=== PATIENT | female | born 1950 | race Caucasian/White ===

== ENCOUNTER 2018-11-13 18:02 | Inpatient (IN) | payer MEDICARE, SELFPAY ==
[~2018-11-13 18:02] MED LIST: Dexamethasone 20 MG/5 ML VIAL ONE; ISOVUE-370 76%-LOCM 1 ML ONE; PHENYLEPHRINE-NS 100 MCG/ML 10 ML SYRINGE ONE; PROPOFOL 200 MG/20 ML VIAL ONE; Rocuronium Bromide 10 MG/ML (10ML VIAL) ONE; ePHEDrine/0.9% NaCl/PF SYRINGE 50 mg/10 ml ONE
[2018-11-13] MEDS ORDERED: niCARdipine 20MG In NaCl 20 MG/200 ML BAG ONE (18:24)
[2018-11-13 18:38] LABS: #Basophils 0.1 thou/uL (0.0-0.2); #Eosinphils 0.1 thou/uL (0.0-0.7); #Lymphocytes 1.2 thou/uL (1.20-3.40); #Monocytes 0.6 thou/uL (0.11-0.59); #Neutrophils 12.5 thou/uL (1.40-6.50); %Basophils 0.4 % (0.0-1.0); %Eosinophils 0.8 % (0.0-10.0); %Lymphocytes 8.1 % (21.0-51.0); %Monocytes 3.8 % (0.0-10.0); %Neutrophils 86.9 % (42.0-75.0); Mean Corpuscular HGB CONC 32.6 g/dL (32.0-36.0); Mean Corpuscular Hemoglobin 29.8 pg (27.0-31.0); Mean Corpuscular Volume 91.6 fL (78.0-98.0); Platelet Count 250 thou/uL (130-400); RBC Distribution Width 11.9 % (11.5-14.5); Red Blood Cell (RBC) Count 5.03 mill/uL (4.20-5.40); White Blood Cell (WBC) Count 14.4 thou/uL (4.8-10.8)
[2018-11-13 18:46] LABS: PTT 28.1 SEC (22.9-36.1)
[2018-11-13] MEDS ORDERED: fentaNYL Citrate/PF 2,000 MCG in Sodium Chloride 0.9% 60 ML IV SCH (18:55)
[2018-11-13] MEDS ORDERED: Fentanyl 100 MCG/2 ML VIAL ONE ×2 (18:55→23:07)
[2018-11-13 18:58] LABS: ALT (SGPT) 14 U/L (8-55); AST (SGOT) 22 U/L (5-34); Albumin 4.2 g/dL (3.4-4.8); Alkaline Phosphatase 112 U/L (40-150); Anion Gap 18 mmol/L (10-20); BUN (Urea Nitrogen) 16 mg/dL (9.8-20.1); Bilirubin, Total 0.4 mg/dL (0.2-1.2); Calc. Creatinine Clearance 0 mL/min (70-130); Calcium 8.8 mg/dL (7.8-10.44); Carbon Dioxide 18 mmol/L (23-31); Chloride 104 mmol/L (98-107); Estimated GFR-MDRD 68; Globulin 2.8 g/dL (2.4-3.5); Glucose 167 mg/dL (80-115); Potassium 3.4 mmol/L (3.5-5.1); Sodium 137 mmol/L (136-145)
[2018-11-13 19:04] LABS: Actual Bicarbonate (HCO3a) 21.1 mEq/L (22-28); Analyzer IN Cardio ER; Base Excess (BEa) -2.8 mEq/L (-2.0 to +3.0); CO2 Tension 34.3 mmHg (35.0-45.0); Calcium, Ionized 1.13 mmol/L (1.12-1.30); Carboxyhemoglobin (COHb) 3.3 gm% (0.0-3.0); Hemoglobin (Hb) 14.7 g/dL (12.0-16.0); Potassium - ABG Lab 3.32 mmol/L (3.70-5.30); pH, Arterial 7.41 (7.35-7.45)
[2018-11-13 19:05] LABS: ALV-art Gradient 344.125 (0-20); Puncture Site RBRACH
[2018-11-13] MEDS ORDERED: Propofol 1,000 MG/100 ML VIAL IV ONE (19:07)
[2018-11-13] MEDS ORDERED: Morphine 4 MG/ML VIAL SLOW IVP PRN ×2 (19:35)
[2018-11-13] MEDS ORDERED: diphenhydrAMINE 50 MG CAP PO PRN (19:35)
[2018-11-13] MEDS ORDERED: Docusate 100 MG CAP PO PRN (19:35)
[2018-11-13] MEDS ORDERED: Ondansetron PF 4 MG/2 ML Vial IVP PRN (19:35)
[2018-11-13] MEDS ORDERED: Promethazine 25 MG TAB PO PRN (19:35)
[2018-11-13] MEDS ORDERED: Promethazine HCl 25 MG/ML VIAL IM PRN (19:35)
[2018-11-13] MEDS ORDERED: HYDROcodone/Acetaminophen 7.5/325 mg Tablet PO PRN (19:35)
[2018-11-13] MEDS ORDERED: diphenhydrAMINE 50 MG/ML VIAL IVP PRN (19:35)
[2018-11-13] MEDS ORDERED: Milk Of Magnesia 30 ML UDCUP PO PRN (19:35)
[2018-11-13] MEDS ORDERED: Mag-Al 1200 mg/1200 mg/30 ML UDCUP PO PRN (19:35)
--- NOTE | 2018-11-13 19:59 | RAD ---
PORTABLE CHEST 11/13/18 PROVIDED CLINICAL HISTORY: Intubation. FINDINGS: No comparisons. The cardiac and mediastinal silhouette is within normal limits. Lungs appear clear. No pleural fluid or pneumothorax apparent. Endotracheal tube is noted, tip of which terminates just at the level of th e thoracic inlet. IMPRESSION: No evidence for an acute cardiopulmonary process. POS: [facility]
[2018-11-13] MEDS ORDERED: Labetalol HCl 100 MG/20 ML VIAL SLOW IVP SCH (20:00)
--- NOTE | 2018-11-13 20:10 | CT ---
CT BRAIN 11/13/18 PROVIDED CLINICAL HISTORY: History of aneurysm, left sided flaccidity. FINDINGS: No comparisons. There is a 6.6 cm parenchymal hematoma involving the right basal ganglia region. There is extensive s ubarachnoid hemorrhage. There is likely a small amount of right subdural hemorrhage as well. There is evidence for aneurysm clip in the expected location of the left MCA. There is encephalomalacia invol ving much of the left temporal and parietal regions. There is about 1.5 cm of right to left midline s hift. The ventricular system is nondilated. Craniotomy changes are seen on the left. The extracranial soft tissues and osseous structures appear otherwise unremarkable. IMPRESSION: Findings compatible with ruptured right MCA aneurysm with associated parenchymal hematoma and extensi ve subarachnoid hemorrhage. Findings communicated to Dr. August at 6:15 p.m., 11/13/18. Code CR POS: [facility]
[2018-11-13] MEDS ORDERED: manNITOL 20% 500 ML ONE (20:41)
[2018-11-13] MEDS ORDERED: Phenylephrine HCL 10 MG/ML VIAL ONE (20:50)
[2018-11-13] MEDS ORDERED: levETIRAcetam 500 MG/100 ML PREMIX BAG ONE (20:51)
[2018-11-13] MEDS ORDERED: levETIRAcetam 1000 MG/100 ML PREMIX BAG ONE (20:51)
[2018-11-13] MEDS ORDERED: Lidocaine 0.5%/Epinephrine 1:200,000 50 ml Vial ONE (20:52)
[2018-11-13] MEDS ORDERED: Papaverine 60 MG/2 ML VIAL ONE (20:52)
[2018-11-13] MEDS ORDERED: Sodium Chloride 0.9% 10 ML ONE ×2 (20:52→20:55)
[2018-11-13] MEDS ORDERED: Bacitracin Zinc Ointment 30 gm TUBE ONE (20:57)
[2018-11-13] MEDS ORDERED: Albumin 5% 0 ML ONE (21:11)
[2018-11-13] MEDS ORDERED: Indocyanine Green 25 MG/10 ML VIAL ONE ×2 (21:31→22:57)
--- NOTE | 2018-11-13 22:03 | CT ---
CT ANGIOGRAM GREAT VESSELS NECK WITH IV CONTRAST AND 3D MIP RECONSTRUCTIONS CT ANGIOGRAM BRAIN WITH IV CONTRAST AND 3D MIP RECONSTRUCTIONS 11/13/18 PROVIDED CLINICAL HISTORY: Aneurysm. FINDINGS: There is a normal three vessel configuration of the great vessels at the arch. There is no evidence f or a significant stenosis involving the subclavian carotid, innominate or vertebral arteries. The left vertebral artery is dominant. There is a saccular right MCA trifurcation aneurysm measuring approximately 6.6 mm in greatest transv erse dimension. This demonstrates a neck measuring approximately 3 mm. Postoperative changes of prior left MCA aneurysm clipping are noted. Intracranial hemorrhage and encephalomalacia involving the lef t cerebral hemisphere as described on prior noncontrast CT examination redemonstrated. IMPRESSION: 1. Normal CT angiogram of the great vessels of the neck. 2. 6 mm saccular right MCA trifurcation aneurysm with relatively broad neck. 3. Redemonstration of intracranial hemorrhage. The degree of midline shift appears to have incre ased with respect to the early noncontrast CT examination, now measuring about 2 cm. POS: [facility]
[2018-11-13] MEDS ORDERED: Sodium Chloride 0.9% 30 ML ONE (22:19)
--- NOTE | 2018-11-13 22:38 | PRG ---
DATE OF SERVICE: 11/13/2018 SUBJECTIVE: I personally examined Ms. Camargo, spoke with her , reviewed imaging records and agreed with documentation of Diana Shea PA-C, dated 11/13/2018. Briefly, Colleen Camargo is a 68-year-old woman with a remote history (20 years ago) of left MCA aneurysm rupture, treated by craniotomy and clipping as evidenced on her CT scan. More recently, she has stopped taking her medications including blood pressure medicine about 6 months ago. She had abrupt onset loss of consciousness and was brought to our emergency department today, where CT imaging of the brain revealed a right-sided parenchymal hemorrhage in the inferior frontal lobe near the sylvian fissure as well as subarachnoid blood in the basal cisterns. CT angiography showed a MCA aneurysm. On the 1st evaluation, Ms. Camargo was drowsy, but arousable. Her eyes open to voice. She was localizing. She does not pay as much tension in the left side as the right, but all extremities were moving and all her cranial nerves were intact. The CT angiogram was ordered at that time. Because of emergency department concern about airway protection, she was intubated before that. At around 16:40 in the afternoon/evening, she was given etomidate and rocuronium according to the ER nurse. This was for intubation and endotracheal tube was placed. A CT angiogram was performed and images of that angiogram were finally available of AP. I met the patient in the emergency department after intubation and stopped her propofol drip. We waited 15 minutes. We ensured both the rocuronium and the etomidate in the past and we re-examined her. At this time, her examination was much poor including large nonreactive pupil on the right than the 4-mm nonreactive pupil on the left with a corneal that was intact. There was a gag that was intact. Doll's eyes were missing. To deep central pain, there was extension in the right upper extremity. No motion on the left. The parenchymal hemorrhage is causing more shift and a CT angiogram done on the previous CT scan, basal cisterns were still filled with subarachnoid hemorrhage. I had originally spoken to the after the CT examination about an attempt at coiling and then a craniotomy for evacuation of the clot and decompression. Due to deterioration, we elected to take her to the operating room. Informed Consent: I discussed indications, risks, benefits, and alternatives to craniectomy, clot evacuation, and aneurysm clipping. Risks discussed included, but were not limited to bleeding, infection, stroke, brain damage, seizures, epilepsy, permanent neurological deficit, dependence for care, and cardiopulmonary complications of anesthesia including . Due to the deterioration in neurological function on the nonfunctional pupils, the history of previous aneurysm, and a midline shift, I think return to independent living is less on left likely. understood this, but still assistive, proceeded with emergent care. We will take her to the operating room. Job ID: [id number]
[2018-11-13] MEDS ORDERED: Thrombin 5000 UNITS/5 ML VIAL ONE (22:51)
[2018-11-13] MEDS ORDERED: PHENYLEPHRINE-NS 100 MCG/ML 10 ML SYRINGE ONE ×2 (23:15→23:16)
[2018-11-14] MEDS ORDERED: Adenosine 6 MG/2 ML VIAL ONE (00:05)
[2018-11-14] MEDS ORDERED: Rocuronium Bromide 50 MG/5 ML VIAL ONE (00:12)
[2018-11-14 02:54] LABS: Actual Bicarbonate (HCO3a) 20.7 mEq/L (22-28); CO2 Tension 29.6 mmHg (35.0-45.0); Calcium, Ionized 1.04 mmol/L (1.12-1.30); Carboxyhemoglobin (COHb) 0.8 gm% (0.0-3.0); Hemoglobin (Hb) 13.7 g/dL (12.0-16.0); O2 Tension (PaO2) 62.1 mmHg (> 80.0); Potassium - ABG Lab 3.81 mmol/L (3.70-5.30); pH, Arterial 7.46 (7.35-7.45)
[2018-11-14 02:56] LABS: Puncture Site LINE
[2018-11-14] MEDS: Famotidine/PF 20 mg/2ml Vial SLOW IVP SCH ×3 (03:07→20:02)
[2018-11-14] MEDS: Sodium Chloride 0.9% 1,000 ML IV SCH ×2 (03:17→17:18)
[2018-11-14] MEDS: Labetalol HCl 100 MG/20 ML VIAL SLOW IVP PRN ×3 (03:18→06:04)
[2018-11-14] MEDS: niMODipine 30 MG CAP PO SCH ×2 (03:37→06:08)
[2018-11-14 07:11] LABS: Actual Bicarbonate (HCO3a) 18.8 mEq/L (22-28); Base Excess (BEa) -4.1 mEq/L (-2.0 to +3.0); CO2 Tension 28.6 mmHg (35.0-45.0); Calcium, Ionized 1.09 mmol/L (1.12-1.30); Carboxyhemoglobin (COHb) 1.3 gm% (0.0-3.0); O2 Tension (PaO2) 110.9 mmHg (> 80.0); Potassium - ABG Lab 3.66 mmol/L (3.70-5.30); pH, Arterial 7.44 (7.35-7.45)
[2018-11-14 07:14] LABS: Puncture Site ALINE
--- NOTE | 2018-11-14 07:16 | HP ---
HISTORY OF PRESENT ILLNESS: Ms. Camargo is a 68-year-old female who was life flighted to the emergency department due to altered mental status. There is little information on her per EMS and family has not arrived. She comes from the [facility]. Neurosurgery was consulted due to a large right intraparenchymal hemorrhage with approximately 15 mm of midline shift right to left, which has a possible aneurysmal component to it per the radiologist. The patient is in the emergency department, when I entered the room, she is arousable by voice. She will turn and open her eyes and look to the right. She is making noises, but no recognizable words. She is moving both lower extremities and the right upper extremity. She has a GCS of 10 . Upon arrival, she was hypertensive at 158/111. We do not know her medications at this time. REVIEW OF SYSTEMS: Unable to obtain review of systems. PAST MEDICAL HISTORY: No known past medical history. Per the CT of the head, she has had a previous craniotomy with what appears to be a clip. CURRENT MEDICATIONS: Unknown current medications. ALLERGIES: UNKNOWN ALLERGIES. PAST SURGICAL HISTORY: Left-sided craniotomy with clip. PHYSICAL EXAMINATION: VITAL SIGNS: Heart rate 157/98, respirations 16, pulse 66, temperature 95.9, O2 saturation 94% on room air. CONSTITUTIONAL: The patient is hypertensive, afebrile. Appears to be mildly distressed and is arousable. HEENT: Head is normocephalic, atraumatic. Pupils are equal, round, reactive to light. Extraocular movements are intact. Appears to be left-sided neglect. Hearing is intact. Moist mucous membranes. RESPIRATION: Normal work of breathing on room air. CARDIO: Regular rate and rhythm. NEUROLOGIC: The patient has a GCS of 10. She opens her eyes to speech. She is obeying motor commands with her right upper extremity and both lower extremities and she is making incomprehensible sounds. Pupils are equal, round, reactive to light. There is no Babinski. 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 She is moving both lower extremities. When spoken to, she will open her eyes, but look to the right. She neglects on the left side. IMAGING STUDIES: CT of the head shows a large intraparenchymal hemorrhage on the right that is approximately 15 mm right to left midline shift. There is noted craniotomy with clip on the left temporal area. ASSESSMENT AND PLAN: Ms. Camargo has sustained a large arachnoid hemorrhage with possible aneurysmal component. We will need to obtain a CK and need to admit maintaining her blood pressure , keeping her comfortable. Re-evaluate swallowing and imaging. Repeat CT in the morning. Neuro checks every hour. Job ID: [id number]
--- NOTE | 2018-11-14 07:35 | OP ---
DATE OF PROCEDURE: 11/13/2018 DATE OF SURGERY: Started on 11/13/2018, completed on 11/14/2018. IRON WORKER: Diana Shea PA-C PREOPERATIVE INDICATION: Prevent further neurological deterioration. PREOPERATIVE DIAGNOSES: Aneurysmal subarachnoid hemorrhage and aneurysmal parenchymal hemorrhage from ruptured right MCA aneurysm with progressive neurological deterioration and coma. POSTOPERATIVE DIAGNOSES: Aneurysmal subarachnoid hemorrhage and aneurysmal parenchymal hemorrhage from ruptured right MCA aneurysm with progressive neurological deterioration and coma. PROCEDURE PERFORMED: Decompressive craniectomy in the right frontotemporoparietal skull, microsurgical clipping of right MCA aneurysm, evacuation of parenchymal hematoma. PREOPERATIVE MEDICATIONS: Ancef 2 g IV, mannitol 1 g/kg IV. DRAIN NUMBER: Zero. DRAIN TYPE: None. DESCRIPTION OF PROCEDURE: The patient was brought from our emergency department to the operating room with a shortstop in the critical care unit. She had been intubated previously. General anesthesia was induced. Anesthesia placed a central line and an art line and defibrillator pads. The head was immobilized with Mccurdy pin and head cashier, and hair was removed from the right side of the scalp with electric clippers. We planned a large frontotemporoparietal craniectomy and marked out a curvilinear incision starting at the root of the zygoma, curving posteriorly over the ear and back toward the midline of the forehead. Under a planned incision, we infused local anesthetic. The scalp was sterilely prepped and draped and we opened with a 10-blade knife. We pulled the scalp flap forward and then the temporalis muscle flap forward and held them in place under fishhooks. We placed a laury hole at the root of zygoma, the frontal keyhole, the posterior inferior parietal area, the superior parietal area just behind the coronal suture. We then used a high-speed bur and a riding bit to fashion a large frontotemporoparietal craniectomy. The bone flap was taken off the field after it was cleaned and placed in multiple nesting sterile bags for preservation in the freezer. We irrigated copiously with bacitracin irrigation. We opened the dura in a curvilinear fashion. The entire surface of the brain had subarachnoid hemorrhage over its surface. There was some subpial hemorrhage diffusely as well. There was a large prominence at the sylvian fissure with purple clot in the fissure. We brought the operating microscope into the field. Under microscopic magnification and using microsurgical techniques, we carefully dissected anterior to the frontal lobe and the temporal lobe. Before opening the dura, we had drilled off the pterion giving the adequate access to the inferior frontal area and anterior to the temporal lobe. Using the space we had created, we dissected easily all the way down until we encountered the optic nerve. A self-retaining retractor was placed under the frontal lobe. We dissected the arachnoid from over the optic nerve. Copious amounts of CSF emanated from the optical carotid and optical frontal cisterns and the suprasellar cistern. With adequate CSF had been released, the brain relaxed even more. We could dissect along the carotid artery carefully until we found its bifurcation. We then very careful to dissect the proximal portion of the M1. We dissected circumferentially around the M1 to ensure we had direct access to place a temporary clip should the need occur quickly. We then released the frontal retractor and placed a gentle temporal lobe retractor. We dissected the proximal portion of the sylvian fissure along the M1 segment. About 9 to 10 mm after the carotid bifurcation, we encountered the middle cerebral artery bifurcation and the neck of the aneurysm. We did not dissect the dome. We could visualize the temporal branch, but the frontal branch was very difficult to visualize under the aneurysm given a bleb of aneurysm projecting anteriorly. We then irrigated with bacitracin irrigation. We raised the blood pressure and administered a large bolus of propofol. With the propofol, we then replaced the temporary clip on the M1 segment that we had dissected out. This softened the aneurysm, we could dissect around it and easily visualize the frontal branch of the MCA bifurcation. I placed Surgicel around the neck of the aneurysm sweeping any perforators posteriorly. The neck developed quite nicely and we placed an angled clip with its blade across the aneurysm. The first placement was too aggressive and caused some torquing of the temporal branch. The second placement was adequate. We then released the temporary clip on the M1 segment. The total occlusion time was 4 minutes and 9 seconds. IC-Green was administered, and we used our fluorescence filter in the microscope to record the video loop. This showed a very brisk filling of the frontal branch and the temporal branch of the MCA bifurcation. All small perforators in the area were filled in as well, but the aneurysm was dark. We irrigated with bacitracin irrigation and then turned our attention to clot evacuation. In the more distal portion of the sylvian fissure, there was clot in the inferior surface of the frontal lobe and insula. We carefully dissected around some perforators and removed a small amount of clot, but there would be extremely aggressive, would require stretching and lacerating multiple perforators in the area, we elected to leave some clot behind and leave the bone flap off for our decompression. We irrigated once again with bacitracin irrigation. We laid the dura over the brain without closing it. Where there were gaps, we left some Surgicel, and over the dura, we left a piece of silastic fit to match the defect. We then closed the scalp over the silastic in anatomical layers. We applied a sterile dressing. The patient was taken out of the Mobile pin and headholder. This is a clean case, no contamination. Job ID: [id number]
[2018-11-14 07:37] LABS: Hemoglobin 13.3 g/dL (12.0-16.0); Mean Corpuscular HGB CONC 33.2 g/dL (32.0-36.0); Mean Corpuscular Hemoglobin 29.7 pg (27.0-31.0); Mean Corpuscular Volume 89.5 fL (78.0-98.0); Mean Platelet Volume 7.2 fL (7.4-10.4); Platelet Count 257 thou/uL (130-400); Red Blood Cell (RBC) Count 4.47 mill/uL (4.20-5.40); White Blood Cell (WBC) Count 16.8 thou/uL (4.8-10.8)
[2018-11-14 07:41] LABS: Band 25 % (5-11); Lymphocytes 2 % (21-51); MDiff Complete? YES; Neutrophil 72 % (42-75); RBC Morphology Normal
--- NOTE | 2018-11-14 08:50 | CT ---
PRELIMINARY REPORT/[facility]/EMERGENTY AFTER-HOURS PROCEDURE Addendum created by Jeremy Simmons MD on 11/14/2018 4:44 AM Central Time ([place] & [place]) Findings discu ssed with Shabbir Ortiz at time of interpretation. Initial Report created on 11/14/2018 4:39 AM Central Time ([place] & [place]) CT Head Without Contrast EXAM DATE/TIME: 11/14/2018 4:05 AM CLINICAL HISTORY: 68 years old, female; Condition or disease and screening exam; Other: Sdh; Prior surgery; Surgery grover e: Post-operative (0-2 days); Surgery type: F/u sah TECHNIQUE: Axial computed tomography images of the head/brain without contrast. COMPARISON: CT Brain WO Con 11/13/2018 6:09 PM FINDINGS: Brain: The large intraparenchymal hemorrhage centered in right basal ganglia region has increased in size and density compared to the prior study, now measuring 7.1 cm anteroposterior by 5.5 cm transver se by 4.5 cm craniocaudal, resulting in 1.8 cm leftward midline shift, increased compared to the prio r study. Parietal subarachnoid hemorrhage. Persistent extensive right-sided and basilar subarachnoid hemorrhage. Nondependent postoperative bifrontal pneumocephalus. Ventricles: New acute blood in the dependent lateral ventricles bilaterally. Bones/joints: Interval right frontotemporal craniectomy. Prior left frontotemporal craniotomy postsur gical change. Sinuses: Normal as visualized. No acute sinusitis. Mastoid air cells: Normal as visualized. No mastoid effusion. Soft tissues: Postoperative change. Vasculature: Bilateral inferior temporal aneurysm clips. IMPRESSION: 1. The large intraparenchymal hemorrhage centered in right basal ganglia region has increased in size and density compared to the prior study, now measuring 7.1 cm anteroposterior by 5.5 cm transverse b y 4.5 cm craniocaudal, resulting in 1.8 cm leftward midline shift, increased compared to the prior st udy. 2. New acute blood in the dependent lateral ventricles bilaterally. 3. Parietal subarachnoid hemorrhage. Persistent extensive right-sided and basilar subarachnoid hemorr angie. Thank you for allowing us to participate in the care of your patient. Dictated and Authenticated by: Jeremy Simmons MD 11/14/2018 4:39 AM Central Time ([place] & [place]) FINAL REPORT HEAD CT WITHOUT CONTRAST: DATE: 11/14/2018. COMPARISON: 11/13/2018. HISTORY: Intracranial hemorrhage. FINDINGS: I agree with the preliminary [facility] report dictated by Dr. Jeremy Simmons. The patient is status pos t craniectomy in the right frontal region with a synthetic calvarial bone flap. Cutaneous wilfrid ar e seen in this region. Foci of pneumocephalus are noted anteriorly. Aneurysm clips are noted bilaterally. There is large volume subarachnoid blood in the suprasellar cistern. There is marked mass effect ass ociated with a large intraparenchymal hemorrhage in the right frontal region. This hematoma measures at least 6.6 x 5.4 cm, increased from 6.6 x 3.7 cm on the prior exam. There is worsening midline sh ift from right to left now measuring approximately 2 cm. Subfalcine herniation noted, worsened. New intraventricular blood noted in the posterior horn and atrium of bilateral lateral ventricles. Effa cement of the basilar cisterns suggests developing downward herniation and there is severe bilateral uncal herniation, worsened as well. Diffuse subarachnoid blood noted bilaterally, right greater than left, including frontal and parietal regions. IMPRESSION: Interval right frontotemporal craniectomy. Enlargement of intraparenchymal hemorrhage noted in the r ight frontal lobe with worsening midline shift, subfalcine herniation, developing downward herniation , and worsening bilateral uncal herniation. Diffuse subarachnoid blood. CODE T POS: [facility]
--- NOTE | 2018-11-14 09:33 | CON ---
DATE OF CONSULTATION: HISTORY OF PRESENT ILLNESS: A 68-year-old female, in the ICU, intubated on the vent. History is outlined by Dr. Lawton and appropriate people involved including the ER physician, there are no family members at the bedside. She was life flighted from the [facility] with an acute stroke alert protocol. She had large right intraparenchymal hemorrhage with a shift. There was a concern about an aneurysm component. She has been intubated in the vent. Apparently went to surgery by Dr. Lawton, is postop in the ICU with a vent. PAST MEDICAL HISTORY: Apparently pertinent for what sounds like a previous craniotomy for aneurysm, history of hypertension. CHRONIC MEDICATIONS: None. ALLERGIES: NONE. SOCIAL HISTORY: Tobacco, apparently unknown. We will try to get additional information as family arrives. PHYSICAL EXAMINATION: VITAL SIGNS: Intubated in the vent, pulse 79, blood pressure 117/80, saturations 100%, and respirations 20. CHEST: Decreased breath sounds. No wheezing. CARDIAC: Normal S1 and S2, no gallops. ABDOMEN: No masses. LABORATORY DATA: White count 16,000, hemoglobin and hematocrit of 13 and 40, platelet count is normal. Lytes are normal. PO2 is 110, pCO2 is 20, pH 7.44 on a rate of 20, 40%, 450 tidal volume. IMPRESSION: 1. Status post right-sided massive intracerebral hemorrhage secondary to ruptured aneurysm. Please review Neurosurgical extensive surgical note. 2. Respiratory failure. PLAN: Continue present supportive care. We will discuss with Neurosurgery, discuss with family thereafter. Forty five minutes critical time. Job ID: [id number]
--- NOTE | 2018-11-14 10:21 | PRG ---
DATE OF SERVICE: 11/14/2018 SUBJECTIVE: I saw Colleen Camargo in the ICU room this morning. Her just left to return to their home to feed the dogs. He will be back later this morning. Daughter is from out of town or on the way, and nursing staff reports that they are concerned about her mother. Ms. Camargo has already been taken down for a CT scan, sedation was weaned off after that scan. Her blood pressures have been variable as high as in the 200s, but medication started including nicardipine drip, brought it down into the 130s to 140s. When I see Ms. Camargo in our ICU room, her head wrap is in place, it is appropriately marked. The bone flap is missing on the right side. With enough stimulus, she begins to try to open her eyes. With midline stimulus, she will localize with the right upper extremity. She briskly withdraws right lower extremity. She withdraws the left upper extremity and the left lower extremity. She has not localized on the left side. Her pupils are slightly asymmetric, but they are much smaller than they were yesterday and now they react, there is , there is doll's eyes, and there is a gag reflex. CT examination this morning shows expected findings. There was a large clot that dissected from the sylvian fissure into the inferior frontal lobe and insula. Removal of that clot at the time of surgery would have involved significant manipulation of multiple perforators and was elected to leave the bone flap off. Aneurysm clip on the right side is now visible. There is some pneumocephalus. There is still significant amount of shift. Ms. Camargo is in a subarachnoid hemorrhage day 2, post clipping day 1. She is not yet in the vasospasm. But when she does enter that, we will allow her blood pressure to go up. My goal today is less than 160, tomorrow 170, the following 180 and thereafter, will be based on clinical examination. Ms. Camargo will be given amlodipine via an NG tube, that can be placed and a GI consult will be started. I will consider early trach and PEG in this case given the fact that I think her recovery would be slow, I would like to ask General Surgery to be involved in that. We will get daily labs including the magnesium with each of our labs and as we enter the vasospasm we will shoot for a hemoglobin of 10 with normal to high sodium and magnesium that is high. Clinically, I still believe Ms. Camargo has unfavorable grade subarachnoid hemorrhage. She deteriorated while in the emergency department and was taken to emergent surgery, she still has a significant clot to dissolve and that . She will have a protracted and extended recovery. I am not sure if she will be independent after this or not. Job ID: [id number]
[2018-11-14] MEDS ORDERED: Fentanyl BOLUS 250 ML IVPB PRN (16:35)
[2018-11-14] MEDS ORDERED: Lorazepam 2 MG/ML VIAL SLOW IVP PRN (16:35)
[2018-11-14] MEDS ORDERED: Propofol BOLUS 1,000 MG/100 ML VIAL IV PRN (16:35)
[2018-11-14] MEDS: Propofol 1,000 MG/100 ML VIAL IV PRN (17:18)
[2018-11-15] MEDS: Sodium Chloride 0.9% 1,000 ML IV SCH ×2 (05:03→23:29)
[2018-11-15] MEDS: Propofol 1,000 MG/100 ML VIAL IV PRN (05:06)
[2018-11-15 06:39] LABS: Anion Gap 14 mmol/L (10-20); BUN (Urea Nitrogen) 29 mg/dL (9.8-20.1); Calc. Creatinine Clearance 36 mL/min (70-130); Calcium 8.3 mg/dL (7.8-10.44); Carbon Dioxide 17 mmol/L (23-31); Chloride 118 mmol/L (98-107); Estimated GFR-MDRD 45; Glucose 108 mg/dL (80-115); Potassium 3.5 mmol/L (3.5-5.1); Sodium 145 mmol/L (136-145)
[2018-11-15 06:52] LABS: Hemoglobin 10.8 g/dL (12.0-16.0); Hypochromia SLIGHT = 6-15 cells (100X) (0-5/hpf); Lymphocytes 7 % (21-51); MDiff Complete? YES; Mean Corpuscular Volume 90.9 fL (78.0-98.0); Mean Platelet Volume 7.4 fL (7.4-10.4); Monocytes 1 % (0-10); Neutrophil 92 % (42-75); Platelet Count 234 thou/uL (130-400); Platelet Morphology Comment Appears Adequate; RBC Distribution Width 12.4 % (11.5-14.5); White Blood Cell (WBC) Count 15.8 thou/uL (4.8-10.8)
[2018-11-15 07:28] LABS: Base Excess (BEa) -6.3 mEq/L (-2.0 to +3.0); CO2 Tension 27.5 mmHg (35.0-45.0); Calcium, Ionized 1.11 mmol/L (1.12-1.30); Carboxyhemoglobin (COHb) 0.2 gm% (0.0-3.0); Hemoglobin (Hb) 11.7 g/dL (12.0-16.0); O2 Tension (PaO2) 82.2 mmHg (> 80.0); Potassium - ABG Lab 3.38 mmol/L (3.70-5.30); pH, Arterial 7.41 (7.35-7.45)
[2018-11-15 07:30] LABS: ALV-art Gradient 168.625 (0-20); Puncture Site RBRACH
--- NOTE | 2018-11-15 08:52 | CT ---
PRELIMINARY REPORT/[facility]/EMERGENTY AFTER-HOURS PROCEDURE Addendum created by Jeremy Simmons MD on 11/15/2018 3:42 AM Central Time ([place] & [place]) Findings discussed with Shabbir Ortiz MD at time of interpretation. Initial Report created on 11/15/2018 3:36 AM Central Time ([place] & [place]) EXAM: CT Head Without Contrast EXAM DATE/TIME: 11/15/2018 3:16 AM CLINICAL HISTORY: 68 years old, female; Condition or disease; Other: Sah; Prior surgery; Surgery date: Post-operative ( 0-2 days); Patient HX: F/u sah TECHNIQUE: Axial computed tomography images of the head/brain without contrast. COMPARISON: CT Brain WO Con 11/14/2018 4:05 AM FINDINGS: Brain: New acute small right frontotemporal epidural hematoma spanning 4.2 cm in long axis and 1.4 cm in maximum thickness. Stable large right frontotemporal intraparenchymal hematoma. 2 cm leftward mid line shift, mildly increased compared to the prior study. No significant change in multifocal subarac hnoid hemorrhage and dependent intraventricular blood. Left frontotemporal encephalomalacia. Ventricles: Normal. No ventriculomegaly. Bones/joints: Normal. No acute fracture. Sinuses: Small fluid level in the right maxillary sinus may signify sinusitis. Mastoid air cells: Normal as visualized. No mastoid effusion. Soft tissues: Postsurgical changes of the skull. Vasculature: Aneurysm clips. IMPRESSION: New acute small right frontotemporal epidural hematoma spanning 4.2 cm in long axis and 1.4 cm in max imum thickness. Stable large right frontotemporal intraparenchymal hematoma. 2 cm leftward midline sh ift, mildly increased compared to the prior study. Thank you for allowing us to participate in the care of your patient. Dictated and Authenticated by: Jeremy Simmons MD 11/15/2018 3:36 AM Central Time ([place] & [place]) FINAL REPORT HEAD CT WITHOUT CONTRAST: DATE: 11/15/2018. COMPARISON: 11/14/2018. HISTORY: Reevaluate extensive intracranial hemorrhage. FINDINGS: Aneurysm clips noted bilaterally in the expected location of the bilateral MCA bifurcation. As seen on the prior examination, there is severe meicr-yv-ztwh midline shift. Qwsqu-re-yccu midline shift h as worsened, now measuring approximately 2.4 cm, previously measuring approximately 2.1 cm. Large in traaxial hemorrhage in the right frontal region measures 7.0 x 6.2 cm, enlarged since the prior study at which time it measured 4.9 x 6.6 cm. There is evidence of prior craniectomy on the right with sy nthetic bone flap. There is new hemorrhage subjacent to this suggesting an epidural location measuri ng 4.1 x 1.1 cm. Developing downward herniation again noted with effacement of the basilar cisterns. Bilateral uncal herniation again noted. There is subarachnoid blood in the suprasellar cistern. There is bilateral frontal and parietal subarachnoid blood, right greater than left, similar when compared to the prior examination. There is intraventricular blood layering within the left lateral ventricle. IMPRESSION: Enlarging intraaxial hemorrhage in the right frontal region. New extraaxial hemorrhage subjacent to the synthetic calvarial flap. Worsening wkolz-eb-fqqm midline shift with severe subfalcine herniatio n. Downward herniation and bilateral uncal herniation. Diffuse subarachnoid blood. Intraventricula r hemorrhage. CODE Rozina Shea made aware at 9:30am on 11/15/2018. POS: [facility]
--- NOTE | 2018-11-15 09:00 | PRG ---
DATE OF SERVICE: 11/15/2018 NEUROSURGERY PROGRESS NOTE I saw Colleen Camargo in her ICU room this morning. She is on subarachnoid hemorrhage day 3, post clipping day 2. I spoke with the this morning. Ms. Camargo's blood pressures have been in the 120s to 130s over 90. She has been afebrile. On examination, there is still localization on the right side. When sedation is off and I stimulate her in the midline, the right arm comes up to remove my hand. She withdraws the right leg quite well. There is some motion on the left leg, but may be reflex, and there is some extension of the left arm. Pupils are reactive. When I open her eyes, she moves her head and winces, especially when I touch the right orbit. Hemoglobin is 10.8, and the sodium is 145. CT examination this morning still shows a very large hemorrhage that has dissected from the sylvian fissure into the inferior frontal lobe and insula, causing significant mass effect and shift. However, there is no cranial vault on that side, and external pressure is minimized. I told the that I still think clot removal is a high-risk procedure and that her neurological examination is stable. It is high risk because when I attempted to evacuate the clot, I noticed it was firmly adherent to the vessels on the surface of the insula and inferior frontal lobe including perforators. If there is any neurological decline from here, I consider taking her back to remove the clot aggressively, but for now, I do not think she needs it. Starting tomorrow, I will be alert for any vasospasm. Watch the urine output and the sodium. We may change her fluids to 1.5 normal saline prophylactically and bump up the volume to 100 mL an hour to keep expanded. I will start to follow the magnesium level as well. I had a long discussion with the . He still wants to be very aggressive with our management, so I will ask General Surgery to consider trach and PEG sometime early in the week. Job ID: [id number]
--- NOTE | 2018-11-15 09:04 | RAD ---
PORTABLE FRONTAL CHEST RADIOGRAPH: DATE: 11/15/2018. COMPARISON: 11/13/2018. HISTORY: Ventilated patient. FINDINGS: Endotracheal tube and nasogastric tube in proper position. There is a left-sided vascular catheter, distal tip overlying the superior mediastinum near midline. Exact location is uncertain. There is a possibility that this is arterial. It could be venous in nature, but its course is slightly more mi dline than expected. Clinical correlation is essential. There is increased linear interstitial density suggesting severe emphysematous change. There is incr eased density in the left lung base suggesting partial consolidation/collapse of the left lower lobe. IMPRESSION: Lines and tubes as detailed above. The left-sided vascular catheter terminates near midline and is o f uncertain location. This could potentially be arterial in nature, but assessment is limited second nasir to portable technique, rotation to the left, and the patient's anatomy. Clinical correlation is essential. ROGER Shea made aware at 9:30am on 11/15/2018. POS: [facility]
[2018-11-15] MEDS: Famotidine/PF 20 mg/2ml Vial SLOW IVP SCH ×2 (09:16→20:19)
[2018-11-15] MEDS: Sodium Chloride 256 MEQ in Sterile Water Injection 936 ML IV SCH ×2 (10:15→20:19)
[2018-11-15] MEDS: Morphine 2 MG/ML SYRINGE SLOW IVP PRN ×2 (17:51→21:47)
--- NOTE | 2018-11-15 22:13 | EKG ---
Test Reason : Blood Pressure : / mmHG Vent. Rate : 068 BPM Atrial Rate : 068 BPM P-R Int : 168 ms QRS Dur : 086 ms QT Int : 494 ms P-R-T Axes : 071 035 094 degrees QTc Int : 525 ms Normal sinus rhythm T wave abnormality, consider lateral ischemia Prolonged QT T wave inversion V4-V6 Abnormal ECG Confirmed by KRISTEL FLORES DO ([id number]), art editor MARIMAR PICKENS ([id number]) on 11/15/2018 10:12:45 PM Referred By: Confirmed By:KRISTEL FLORES DO
[2018-11-16] MEDS: Propofol 1,000 MG/100 ML VIAL IV PRN (01:46)
[2018-11-16 04:30] LABS: #Lymphocytes 0.8 thou/uL (1.20-3.40); #Monocytes 0.7 thou/uL (0.11-0.59); #Neutrophils 8.9 thou/uL (1.40-6.50); %Basophils 0.1 % (0.0-1.0); %Eosinophils 0.2 % (0.0-10.0); %Lymphocytes 7.8 % (21.0-51.0); %Monocytes 6.5 % (0.0-10.0); %Neutrophils 85.3 % (42.0-75.0); Hemoglobin 9.9 g/dL (12.0-16.0); Mean Corpuscular HGB CONC 32.5 g/dL (32.0-36.0); Mean Corpuscular Hemoglobin 30.1 pg (27.0-31.0); Mean Corpuscular Volume 92.8 fL (78.0-98.0); Mean Platelet Volume 7.6 fL (7.4-10.4); Platelet Count 215 thou/uL (130-400); RBC Distribution Width 12.5 % (11.5-14.5); White Blood Cell (WBC) Count 10.5 thou/uL (4.8-10.8)
[2018-11-16 04:46] LABS: Anion Gap 14 mmol/L (10-20); BUN (Urea Nitrogen) 22 mg/dL (9.8-20.1); Calc. Creatinine Clearance 55 mL/min (70-130); Calcium 8.1 mg/dL (7.8-10.44); Carbon Dioxide 15 mmol/L (23-31); Chloride 125 mmol/L (98-107); Estimated GFR-MDRD 74; Glucose 87 mg/dL (80-115); Potassium 3.3 mmol/L (3.5-5.1); Sodium 151 mmol/L (136-145)
[2018-11-16] MEDS: Sodium Chloride 256 MEQ in Sterile Water Injection 936 ML IV SCH ×2 (05:58→17:49)
[2018-11-16] MEDS: Famotidine/PF 20 mg/2ml Vial SLOW IVP SCH ×2 (07:13→20:29)
[2018-11-16 07:48] LABS: Actual Bicarbonate (HCO3a) 17.7 mEq/L (22-28); Base Excess (BEa) -6.1 mEq/L (-2.0 to +3.0); CO2 Tension 29.7 mmHg (35.0-45.0); Calcium, Ionized 1.15 mmol/L (1.12-1.30); Carboxyhemoglobin (COHb) 0.6 gm% (0.0-3.0); Hemoglobin (Hb) 11.1 g/dL (12.0-16.0); O2 Tension (PaO2) 72.3 mmHg (> 80.0); Potassium - ABG Lab 3.06 mmol/L (3.70-5.30); pH, Arterial 7.39 (7.35-7.45)
[2018-11-16 07:49] LABS: Puncture Site RRA
[2018-11-16 07:50] LABS: ALV-art Gradient 175.775 (0-20)
--- NOTE | 2018-11-16 08:25 | PRG ---
DATE OF SERVICE: 11/16/2018 SUBJECTIVE: The patient remains intubated in the vent, sedated on Diprivan. OBJECTIVE: VITAL SIGNS: Pulse 75, sats are 97%, respirations 20, blood pressure 150/60. HEENT: Pupils are dilated to 4 mm. CHEST: Anterior rhonchi. CARDIAC: Normal S1 and S2 no gallops_. LABORATORY DATA: White count 10,000, H and H 9 and 30, platelet count is 215. PO2 is 72, pCO2 is _34 ph 7.37. Sodium is 151. Chest x-ray shows left-sided infiltrate. IMPRESSION: Status post intracerebral hemorrhage, respiratory failure, hypertension, and left-sided pneumonia. PLAN: She is clearly not weanable at this stage. Input from Neurosurgery. More than likely, she is going to require trach and PEG for long-term care. Empiric antibiotics were initiated. 1-1/2 hours of critical time. Job ID: [id number] MTDD
--- NOTE | 2018-11-16 08:29 | RAD ---
PORTABLE UPRIGHT FRONTAL CHEST RADIOGRAPH: DATE: 11/16/2018. COMPARISON: 11/15/2018. HISTORY: Ventilated patient. FINDINGS: The vascular catheter seen on the prior examination on the left has been removed. Endotracheal tube and nasogastric tube are in proper stable position. Persistent dense opacity in the left base sugges ts left lower lobe consolidation/collapse. IMPRESSION: Persistent increased density in the left lung base. POS: [facility]
[2018-11-16] MEDS: cefTRIAXone\\ROCEPHIN 1 GM in Sodium Chloride 0.9% 100 ML IVPB SCH (09:16)
--- NOTE | 2018-11-16 09:49 | PRG ---
DATE OF SERVICE: 11/16/2018 NEUROSURGERY PROGRESS NOTE Ms. 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 Her neurological condition has remained poor since her evaluation in the emergency department. Although, there is some improvement after surgery. Nursing reports she is a little less interactive today than she was yesterday, but also lets me know that she developed a pneumonia and a low-grade fever. Blood pressures have been in the 130s to 200s. T-max is 100.0 degrees Fahrenheit. I turned the propofol off. It has been running continuously and with significant effort, she starts to localize with the right upper extremity. I saw left upper extremity bent toward the stimulus today one time, but that is the first time I have seen it. There is less reaction today than there was yesterday overall with more extension of the right arm than localization, although intermittently, she will attempt to remove my hand. Her pupils are still small, smaller than they were in the emergency department and nicely reactive. The scalp flap is not particularly tense. Her sodium this morning is 151. Ms. Camargo's daughter from [place] was here and discussed with her the condition of her mother. She knows that her mother's was making medical decisions, but hopes that she has an input into her care. I discussed with her the fact that the prognosis is not terribly good for independence after this. She likely has to remain dependent for all of her care and if she deteriorates further, we may need to consider clot evacuation. The daughter expressed wishes that she does not want her mother put through another surgery, if she is not going to regain independency all of this. She also realizes that the will be making decisions. I will follow up with the remainder of the family later. Job ID: [id number]
[2018-11-16] MEDS: Morphine 2 MG/ML SYRINGE SLOW IVP PRN (14:30)
[2018-11-16] MEDS: Acetaminophen 325 MG TAB PO PRN (20:29)
--- NOTE | 2018-11-17 00:53 | PRG ---
DATE OF SERVICE: 11/15/2018 SUBJECTIVE: She remains intubated in the vent, sedated. Status post craniotomy for intracerebral hemorrhage. CT head today shows a large right-sided intracerebral hemorrhage with shift of the midline. OBJECTIVE: VITAL SIGNS: Pulse is 81, blood pressure 108/41, saturations are 90%, respiratory rate 18. NECK: No masses. CHEST: Reveal decreased breath sounds. No wheezing. CARDIAC: Normal S1, S2. LABORATORY DATA: Creatinine 1.9. Lytes are unremarkable. PO2 82, pCO2 . IMPRESSION: 1. Status post subarachnoid hemorrhage. Status post surgery, emegency. 2. Respiratory failure. She is not weanable at this stage. Continue supportive care. Input from Neurosurgery. One half hour critical time. Job ID: [id number]
[2018-11-17] MEDS: Morphine 2 MG/ML SYRINGE SLOW IVP PRN (03:17)
[2018-11-17 05:10] LABS: #Lymphocytes 1.1 thou/uL (1.20-3.40); #Neutrophils 8.7 thou/uL (1.40-6.50); %Basophils 0.4 % (0.0-1.0); %Eosinophils 0.3 % (0.0-10.0); %Lymphocytes 9.8 % (21.0-51.0); %Monocytes 9.6 % (0.0-10.0); Hemoglobin 10.7 g/dL (12.0-16.0); Mean Corpuscular HGB CONC 32.6 g/dL (32.0-36.0); Mean Platelet Volume 7.8 fL (7.4-10.4); Platelet Count 227 thou/uL (130-400); RBC Distribution Width 12.3 % (11.5-14.5); Red Blood Cell (RBC) Count 3.57 mill/uL (4.20-5.40); White Blood Cell (WBC) Count 10.9 thou/uL (4.8-10.8)
[2018-11-17] MEDS: Sodium Chloride 256 MEQ in Sterile Water Injection 936 ML IV SCH ×2 (05:24→19:32)
[2018-11-17 05:34] LABS: Anion Gap 13 mmol/L (10-20); BUN (Urea Nitrogen) 18 mg/dL (9.8-20.1); Calc. Creatinine Clearance 59 mL/min (70-130); Calcium 8.1 mg/dL (7.8-10.44); Carbon Dioxide 20 mmol/L (23-31); Chloride 121 mmol/L (98-107); Estimated GFR-MDRD 73; Glucose 120 mg/dL (80-115); Magnesium 2.1 mg/dL (1.6-2.6); Sodium 151 mmol/L (136-145)
[2018-11-17 07:18] LABS: Actual Bicarbonate (HCO3a) 24.6 mEq/L (22-28); Base Excess (BEa) 0.5 mEq/L (-2.0 to +3.0); CO2 Tension 37.5 mmHg (35.0-45.0); Calcium, Ionized 1.13 mmol/L (1.12-1.30); Carboxyhemoglobin (COHb) 0.3 gm% (0.0-3.0); Hemoglobin (Hb) 10.4 g/dL (12.0-16.0); Potassium - ABG Lab 2.63 mmol/L (3.70-5.30); pH, Arterial 7.44 (7.35-7.45)
[2018-11-17 07:19] LABS: ALV-art Gradient 160.325 (0-20); Puncture Site RB
[2018-11-17] MEDS: Famotidine/PF 20 mg/2ml Vial SLOW IVP SCH ×2 (07:43→19:31)
[2018-11-17] MEDS: cefTRIAXone\\ROCEPHIN 1 GM in Sodium Chloride 0.9% 100 ML IVPB SCH (07:44)
--- NOTE | 2018-11-17 08:04 | PRG ---
DATE OF SERVICE: 11/17/2018 NEUROSURGERY PROGRESS NOTE Ms. Camargo is subarachnoid hemorrhage day 4, post clipping day 3 from a right MCA aneurysm rupture with intraparenchymal clot and subarachnoid hemorrhage. Ms. Camargo was a little bit less responsive yesterday than she has been. This morning, I am seeing her again in followup and nursing reports that she is back to her baseline from Saturday. There was a fever up to 102.5 degrees Fahrenheit yesterday that responded to Tylenol. We allowing the blood pressures to get up to 180. On examination, I agree with nursing. She withdraws her right lower extremity very quickly to stimulus. She is localizing with the right upper extremity. She begins the localize with left upper extremity. The eyes are swollen shut, but when I open them, the pupils are reactive. The craniectomy site is full, but not terribly tense. Sodium is 151, potassium is dropped to 3.0, magnesium is 2.1, and hemoglobin is 10.7. I discussed Ms. Camargo's current situation with her and youngest daughter. They understand that they still believe she will be unsafe to leave the hospital. Even after her recovery here for the next week to two weeks, I think fci placement is likely permanent. Nonetheless, they want to continue to be aggressive and give a chance to recover from this. Tracheostomy and gastrostomy have been recommended, in that case. We will continue to be vigilant looking for vasospasm and prophylactically treating her with 1.5 normal saline and keep an eye on her magnesium. I do not plan any surgical intervention to remove the clot unless she deteriorates. Job ID: [id number]
[2018-11-17] MEDS ORDERED: CCU ELECTROLYTE REPLACEMENT PROTOCOL FS PRN (08:29)
[2018-11-17] MEDS ORDERED: Potassium Chloride 40 MEQ in Premix Bag 1 BAG IVPB PRN (08:29)
[2018-11-17] MEDS ORDERED: Potassium Chloride 20 MEQ TAB PO PRN (08:29)
[2018-11-17] MEDS ORDERED: Magnesium 2 GM/NS 0.9% 100 ML 2 GM in Premix Bag 1 BAG IVPB PRN (08:29)
[2018-11-17] MEDS ORDERED: Potassium Chloride 40 MEQ in Sodium Chloride 0.9% 250 ML 250 ML IVPB PRN (08:29)
[2018-11-17] MEDS ORDERED: Potassium Phosphate 9 MMOL in Sodium Chloride 0.9% 100 ML IVPB PRN (08:29)
[2018-11-17] MEDS ORDERED: Magnesium Oxide 400 MG TAB PO PRN ×2 (08:29)
[2018-11-17] MEDS ORDERED: Potassium Phosphate 12 MMOL in Sodium Chloride 0.9% 250 ML 250 ML IV PRN (08:29)
[2018-11-17] MEDS ORDERED: Potassium Phosphate 15 MMOL in Sodium Chloride 0.9% 250 ML 250 ML IV PRN (08:29)
--- NOTE | 2018-11-17 09:18 | RAD ---
PORTABLE AP CHEST XRAY: DATE: 11/17/2018. HISTORY: On ventilator. COMPARISON: 11/16/2018. FINDINGS: Endotracheal tube and nasogastric tube remain in place. Cardiac silhouette and pulmonary vasculature are within normal limits. Lungs are hyperexpanded with emphysematous changes seen in the upper lung zones bilaterally. Again noted is increased density at the left lung base which may be minimally im proved from the prior study. There is a questionable small hiatal hernia at the left lung base, alth ough it is difficult to determine based on the single progression. There is blunting of the left lat eral costophrenic angle suggesting a small left pleural effusion. Lungs are otherwise clear and the chest is otherwise stable. IMPRESSION: 1. Persistent parenchymal changes at the left lung base which could be related to either atelectasis or pneumonia. There is lucency seen in the region of parenchymal lung changes in the retrocardiac r egion, but this may be artifactual due to parenchymal changes adjacent to aerated lung. No hiatal he rnia was seen on a chest x-ray on 11/13/2018. 2. Small left pleural effusion. 3. Chronic obstructive pulmonary disease. POS: [facility]
--- NOTE | 2018-11-17 10:48 | PRG ---
DATE OF SERVICE: 11/17/2018 SUBJECTIVE: Colleen Camargo remains intubated in the vent, unresponsive. She is off all sedation. OBJECTIVE: VITAL SIGNS: Maximum temperature was 100.8, pulse 89, blood pressure , respiratory rate 18, and sats are 100%. CHEST: Decreased breath sounds. No wheezing. CARDIAC: Normal S1 and S2. No gallops. ABDOMEN: No masses. LABORATORY DATA: White count 10,000, hemoglobin and hematocrit of 10 and 32, platelet count is normal. pO2 is 78, pCO2 of . Sodium is 151, potassium is 3, and chloride is 121. X-ray showed left-sided infiltrate. IMPRESSION: 1. Intracerebral hemorrhage, no electrolyte imbalance. 2. Fever. 3. Pneumonia. PLAN: She is due for trach and PEG. IV is being adjusted by Neurosurgery. I may consider free water. One-half hour of critical time. Job ID: [id number]
[2018-11-17] MEDS ORDERED: Sterile Water 10 ML ONE (13:33)
[2018-11-17] MEDS ORDERED: Vecuronium 10 MG VIAL ONE (13:33)
[2018-11-17] MEDS ORDERED: Midazolam HCl 2 mg/2 ml Vial ONE (13:34)
[2018-11-17 13:36] LABS: Actual Bicarbonate (HCO3a) 22.7 mEq/L (22-28); Analyzer IN Cardio OR; CO2 Tension 43.1 mmHg (35.0-45.0); Calcium, Ionized 1.01 mmol/L (1.12-1.30); Carboxyhemoglobin (COHb) 0.6 gm% (0.0-3.0); Hemoglobin (Hb) 12.3 g/dL (12.0-16.0); O2 Tension (PaO2) 326.5 mmHg (> 80.0); Potassium - ABG Lab 3.57 mmol/L (3.70-5.30); pH, Arterial 7.34 (7.35-7.45)
[2018-11-17 13:37] LABS: Actual Bicarbonate (HCO3a) 23.3 mEq/L (22-28); Analyzer IN Cardio OR; Base Excess (BEa) -4.3 mEq/L (-2.0 to +3.0); CO2 Tension 53.9 mmHg (35.0-45.0); Calcium, Ionized 1.05 mmol/L (1.12-1.30); Carboxyhemoglobin (COHb) 0.7 gm% (0.0-3.0); Hemoglobin (Hb) 12.5 g/dL (12.0-16.0); O2 Tension (PaO2) 321.8 mmHg (> 80.0); Potassium - ABG Lab 3.52 mmol/L (3.70-5.30)
[2018-11-17 14:01] LABS: pH, Arterial 7.25 (7.35-7.45)
[2018-11-17] MEDS ORDERED: Fentanyl 100 MCG/2 ML VIAL ONE ×2 (14:01→14:46)
[2018-11-17 14:02] LABS: Puncture Site ALINE
[2018-11-17 14:02] LABS: Puncture Site ALINE
[2018-11-17] MEDS ORDERED: Lidocaine 1% w/Epinephrine 1:100K 20 ML VIAL ONE (14:18)
--- NOTE | 2018-11-17 19:25 | OP ---
DATE OF PROCEDURE: 11/17/2018 PREOPERATIVE DIAGNOSES: 1. Ruptured middle cerebral arterial aneurysm, status post craniectomy and clipping. 2. Acute respiratory failure secondary to ruptured middle cerebral arterial aneurysm. POSTOPERATIVE DIAGNOSES: 1. Ruptured middle cerebral arterial aneurysm, status post craniectomy and clipping. 2. Acute respiratory failure secondary to ruptured middle cerebral arterial aneurysm. PROCEDURES PERFORMED: 1. Percutaneous tracheostomy tube placement. 2. Percutaneous endoscopic gastrostomy tube placement. ANESTHESIA: Deep sedation and local. INDICATIONS FOR OPERATION: A 68-year-old woman, who suffered massive intracranial hemorrhage following a ruptured right middle cerebral arterial aneurysm. The patient is postoperative day #4, status post craniectomy and aneurysmal clipping. She remains on mechanical ventilatory support. I have been asked to place the gastrostomy tube placement in anticipation of prolonged mechanical ventilator support and to facilitate ventilator wean. Percutaneous endoscopic gastrostomy tube placement is also warranted for potential prolonged enteral nutritional supplementation. DESCRIPTION OF PROCEDURE: Informed consent was obtained from the patient's . The patient was placed in supine position. She was placed with her cervical spine in neutral position. Care was taken to avoid any pressures to the bone flap. The patient was placed on full mechanical ventilatory support with FiO2 set at 100%. She received aliquots of midazolam, fentanyl intravenously to achieve deep sedation and comfort. She was then given vecuronium 10 mg intravenously. Following this, the anterior neck was sterilely prepped and draped in usual fashion. The skin 2 fingerbreadths above the suprasternal notch was anesthetized with 1% lidocaine. A 1-cm vertical incision was made via using 15 scalpel. Introducer needle was inserted through the anterior tracheal wall and placed in the endotracheal lumen. Through this, a guidewire was advanced into the distal tracheal lumen without resistance. Needle was withdrawn over the guidewire. Proper placement of the guidewire was confirmed by bronchoscopy. On direct bronchoscopy, the anterior tracheal wall was sterilely dilated over the guidewire. Finally, a size A tracheostomy tube with a dilator and introducer sheath were passed as a unit over the guidewire and placed in the distal tracheal lumen without resistance. The tracheostomy tube was left in place. While withdrawing the dilator, introduced the catheter and guidewire as a unit. The inner cannula was then inserted. Cuff was inflated. The patient was connected to the mechanical ventilator via newly placed tracheostomy tube with good return of tidal volume. Tracheostomy tube was secured to anterior neck using 0 silk suture at two points. Sterile dressings and trach tie were applied. Bronchoscope was withdrawn with the endotracheal tube as a unit visualizing the tracheostomy site from above with good hemostasis. Once the endotracheal tube was removed, the bronchoscope was reintroduced through the newly placed tracheostomy tube and advanced to visualize the elan. The scope was advanced into the right and left mainstem bronchi, noting no active bleeding. Finding no no bleeding. The scope was withdrawn visualizing intact tracheobronchial mucosa. The patient tolerated this procedure without any apparent complication and remained hemodynamically stable following completion of the procedure. Oxygen saturation remained 100% at all times. Attention was then directed to the abdomen for the placement of percutaneous endoscopic gastrostomy tube. Mouth guard was put in place. Endoscope was introduced per oral and advanced into the esophagus. With gentle insufflation, the gastric lumen was entered and insufflated under direct vision. The scope was advanced into the proximal duodenum, finding no peptic ulcerative disease. The scope was then withdrawn into the gastric lumen and transilluminated in the left upper quadrant, the area chosen for placement of gastrostomy tube. Eventually, the entire abdomen was sterilely prepped and draped in usual fashion. The skin in the left upper quadrant was anesthetized with 1% lidocaine. Stab incision was made using 11 scalpel. Introducer needle was then inserted through this incision, advanced into the gastric lumen, visualized by endoscopy. Guidewire was introduced into the gastric lumen and captured with an endosnare, which was introduced through the endoscope. The guidewire was pulled out connected this to a 20-Faroese gastrostomy tube. The distal end of the guidewire was then pulled out leaving the mushroom end of the gastrostomy tube in the gastric mucosal wall. Endoscope was reintroduced to the gastric lumen, visualizing the mushroom end of the gastrostomy tube. There was no active bleeding noted. Finding no other pathology, the stomach was desufflated. The endoscope was withdrawn, visualizing intact esophageal mucosa. The gastrostomy tube was fashioned to length and secured to anterior abdominal wall using a bolster. Sterile dressing was applied here. The patient tolerated this operation without any apparent complication. She remains hemodynamically stable following completion of the procedure. Note that, prior to incision, she received a gram of cefazolin intravenously. Job ID: [id number]
[2018-11-18] MEDS: Morphine 2 MG/ML SYRINGE SLOW IVP PRN (03:08)
[2018-11-18 05:29] LABS: #Eosinphils 0.1 thou/uL (0.0-0.7); #Lymphocytes 1.2 thou/uL (1.20-3.40); #Monocytes 1.1 thou/uL (0.11-0.59); %Eosinophils 0.9 % (0.0-10.0); %Lymphocytes 10.5 % (21.0-51.0); %Monocytes 9.7 % (0.0-10.0); %Neutrophils 78.9 % (42.0-75.0); Hemoglobin 9.9 g/dL (12.0-16.0); Mean Corpuscular Hemoglobin 29.3 pg (27.0-31.0); Mean Corpuscular Volume 91.6 fL (78.0-98.0); Mean Platelet Volume 7.8 fL (7.4-10.4); Platelet Count 176 thou/uL (130-400); RBC Distribution Width 12.1 % (11.5-14.5); Red Blood Cell (RBC) Count 3.38 mill/uL (4.20-5.40); White Blood Cell (WBC) Count 11.4 thou/uL (4.8-10.8)
[2018-11-18 05:51] LABS: Anion Gap 14 mmol/L (10-20); BUN (Urea Nitrogen) 15 mg/dL (9.8-20.1); Calc. Creatinine Clearance 69 mL/min (70-130); Carbon Dioxide 21 mmol/L (23-31); Chloride 119 mmol/L (98-107); Estimated GFR-MDRD 87; Glucose 89 mg/dL (80-115); Magnesium 1.8 mg/dL (1.6-2.6); Potassium 3.2 mmol/L (3.5-5.1); Sodium 151 mmol/L (136-145)
[2018-11-18] MEDS: Sodium Chloride 256 MEQ in Sterile Water Injection 936 ML IV SCH ×2 (06:19→18:13)
[2018-11-18 07:25] LABS: Actual Bicarbonate (HCO3a) 25.4 mEq/L (22-28); Base Excess (BEa) 1.2 mEq/L (-2.0 to +3.0); CO2 Tension 38.7 mmHg (35.0-45.0); Calcium, Ionized 1.15 mmol/L (1.12-1.30); Carboxyhemoglobin (COHb) 0.9 gm% (0.0-3.0); Hemoglobin (Hb) 9.4 g/dL (12.0-16.0); O2 Tension (PaO2) 95.7 mmHg (> 80.0); Potassium - ABG Lab 3.61 mmol/L (3.70-5.30); pH, Arterial 7.44 (7.35-7.45)
[2018-11-18 07:26] LABS: ALV-art Gradient 141.125 (0-20); Puncture Site LR
[2018-11-18] MEDS: cefTRIAXone\\ROCEPHIN 1 GM in Sodium Chloride 0.9% 100 ML IVPB SCH (07:34)
--- NOTE | 2018-11-18 08:10 | PRG ---
DATE OF SERVICE: 11/18/2018 Ms. Camargo is subarachnoid hemorrhage day 5, post clipping day 4 for right MCA aneurysm rupture with intraparenchymal and subarachnoid hemorrhage. Yesterday, Ms. Camargo had a tracheostomy and gastrostomy placed. I am seeing her this morning in her ICU. T-max overnight was 100.1 degrees Fahrenheit. Blood pressures have been in the 120 to 170 range. Ms. Camargo's facial swelling from her craniotomy is receding now. She looks more alert even as I entered the room when I say her name, she begins to move her right leg. I stimulate her chest. She tries to grab my arm away quite quickly with the right upper extremity. She even brings her right foot up to try to push me away. She attempts to open her eyes, but they are not opening quite yet. When I open them, the pupils are reactive and she looks around the room, trying to make eye contact. The left side is not moving as purposefully as the right and the left leg is a little bit better than the left arm. Today's hemoglobin is 9.9, sodium is 151, potassium is 3.2, magnesium is 1.8. Ms. Camargo is improved neurologically since yesterday. I don't see any evidence of clinical vasospasm yet. We will keep an eye on the magnesium and replace it as needed and her high sodium is beneficial in preventing vasospasm as well. She is much more comfortable with her trach and PEG in place. We can begin thinking about placement issues as time goes by. Her lungs will need to recover more before we can remove her from ventilatory support, however. Job ID: [id number]
[2018-11-18] MEDS: Famotidine/PF 20 mg/2ml Vial SLOW IVP SCH ×2 (08:42→21:08)
--- NOTE | 2018-11-18 10:28 | PRG ---
DATE OF SERVICE: 11/18/2018 SUBJECTIVE: Status post trach and PEG. No sedation, unresponsive. No painful stimuli. She is moving both lower extremities. OBJECTIVE: VITAL SIGNS: Blood pressure is 142/80, pulse is 80, respirations are 20, sats 100%. She is afebrile. Temperature is 99.8. CHEST: Decreased breath sounds, no wheezing. CARDIAC: Normal S1 and S2. No gallops. ABDOMEN: No mass. DIAGNOSTIC DATA: White count 11,000. H and H are 9 and 31. Platelet count 176. PO2 is 95, pCO2 of 38, pH 7.44, rate of 14, 40%. Sodium . IMPRESSION: Respiratory failure secondary to intracerebral hemorrhage, left-sided infiltrate pneumonia. PLAN: Continue wean vent. Hopefully we will get a trach collar tomorrow, eventually placement nutrition and PT. One-half hour of critical time. Job ID: [id number]
--- NOTE | 2018-11-18 14:12 | PRG ---
DATE OF SERVICE: 11/18/2018 SUBJECTIVE: This is a 68-year-old female, who is postop day 1, status post percutaneous trach and PEG placement with Dr. Caputo. There were no acute overnight events. OBJECTIVE: VITAL SIGNS: Temperature 99.8, pulse 81, respirations 21, O2 saturation 100%, and blood pressure 154/81. GENERAL: Intubated and sedated female. NECK: Tracheostomy sutured in place, minimal serosanguineous drainage on trach dressing. PULMONARY: Symmetric chest rise. CARDIOVASCULAR: Regular rate and rhythm. GI: PEG, dressing is clean, dry, and intact. Tube feeds are currently running. ASSESSMENT: Postop day 1 status post trach and PEG. PLAN: This is postop day 1 status post successful placement of percutaneous tracheostomy and PEG tube placement with Dr. Caputo. The PEG tube is okay for use. Surgical Team will sign off at this time. Please call with any questions. Plan of care was discussed with the patient's nurse at bedside and all questions were answered at the time of this dictation. The patient was discussed with attending. Job ID: [id number]
[2018-11-18] MEDS: Acetaminophen 325 MG TAB PO PRN (15:46)
[2018-11-19] MEDS: Labetalol HCl 100 MG/20 ML VIAL SLOW IVP PRN ×4 (02:08→19:27)
[2018-11-19] MEDS: Acetaminophen 325 MG TAB PO PRN (05:09)
[2018-11-19] MEDS: Sodium Chloride 256 MEQ in Sterile Water Injection 936 ML IV SCH (05:51)
[2018-11-19 06:10] LABS: #Eosinphils 0.1 thou/uL (0.0-0.7); #Lymphocytes 0.9 thou/uL (1.20-3.40); #Monocytes 0.9 thou/uL (0.11-0.59); #Neutrophils 7.7 thou/uL (1.40-6.50); %Basophils 0.1 % (0.0-1.0); %Eosinophils 0.7 % (0.0-10.0); %Lymphocytes 9.5 % (21.0-51.0); %Monocytes 9.3 % (0.0-10.0); %Neutrophils 80.4 % (42.0-75.0); Hemoglobin 9.5 g/dL (12.0-16.0); Mean Corpuscular Volume 90.8 fL (78.0-98.0); Platelet Count 198 thou/uL (130-400); Red Blood Cell (RBC) Count 3.16 mill/uL (4.20-5.40); White Blood Cell (WBC) Count 9.6 thou/uL (4.8-10.8)
[2018-11-19 06:34] LABS: Anion Gap 10 mmol/L (10-20); BUN (Urea Nitrogen) 18 mg/dL (9.8-20.1); Calc. Creatinine Clearance 65 mL/min (70-130); Calcium 8.5 mg/dL (7.8-10.44); Carbon Dioxide 26 mmol/L (23-31); Chloride 118 mmol/L (98-107); Estimated GFR-MDRD 80; Glucose 150 mg/dL (80-115); Magnesium 1.8 mg/dL (1.6-2.6); Potassium 3.1 mmol/L (3.5-5.1); Sodium 151 mmol/L (136-145)
[2018-11-19 07:16] LABS: Actual Bicarbonate (HCO3a) 23.6 mEq/L (22-28); Base Excess (BEa) 0.2 mEq/L (-2.0 to +3.0); CO2 Tension 33.5 mmHg (35.0-45.0); Calcium, Ionized 1.15 mmol/L (1.12-1.30); Hemoglobin (Hb) 10.2 g/dL (12.0-16.0); pH, Arterial 7.47 (7.35-7.45)
[2018-11-19 07:19] LABS: ALV-art Gradient 184.925 (0-20); O2 Tension (PaO2) 58.4 mmHg (> 80.0)
[2018-11-19] MEDS ORDERED: DC Sedation Protocol FS ONE (07:53)
--- NOTE | 2018-11-19 08:12 | PRG ---
DATE OF SERVICE: 11/19/2018 SUBJECTIVE: This morning, she is on a vent at a rate of 8, appears to be in no distress. OBJECTIVE: VITAL SIGNS: Tidal volume is spontaneous about 500 mL, pulse 79, saturations are 98%, respiratory rate 18, and blood pressure is 130/80. HEENT: Pupils are equal. She is moving only her right-side and paralysis on the left side. CHEST: Decreased breath sounds. No wheezing. CARDIAC: Normal S1 and S2. No gallops. ABDOMEN: No masses. LABORATORY DATA: White count is 9000, H and H are 9 and 28, and platelet count is normal. Sodium of 151 and potassium 3.1. Blood gases shows a pO2 of 58, pCO2 of . IMPRESSION: 1. Respiratory failure. 2. Pneumonia. 3. Chronic obstructive pulmonary disease. 4. Intracerebral hemorrhage. PLAN: Trach collar placement at this stage. Continue antibiotics, neb treatments, and supportive care. Long-term placement discussed with the daughter and . She has a trach and PEG in place. Continue nutrition support. One-half hour of critical care time. Job ID: [id number]
--- NOTE | 2018-11-19 09:13 | PRG ---
DATE OF SERVICE: 11/19/2018 I saw Colleen Camargo in Neurosurgery Clinic today. She is subarachnoid hemorrhage day #6, post clipping day #5 from large right MCA aneurysm rupture causing intracerebral and subarachnoid hemorrhage. Ms. Camargo made some improvement yesterday and the nurses report the possibility of following commands intermittently yesterday. There was low-grade fever yesterday afternoon at 101.4. Blood pressures have been in the 150s to 200s. Ms. Camargo is a bit more interactive. She is not quite opening her eyes. She rests comfortably when I am not touching her, but when I start to manipulate her extremities or provide stimulus, she is quite purposeful on the right side. Left side is not purposeful and intermittently flexes or extends, but the right side localizes quite briskly and pushes me away. Sodium this morning is 151 and magnesium is 1.8. Ms. Camargo has improved since the weekend, but her neurological function is quite impaired. At least, she will need intermediate placement eventually. The current issues are to wean slowly off the ventilator. Watch for vasospasms. Maintain her fluid with hypertonic saline until we are out of the vasospasm. Watch for DVT and provide family support. We will continue to monitor and treat her aggressively. Job ID: [id number] [facility]
[2018-11-19] MEDS: cefTRIAXone\\ROCEPHIN 1 GM in Sodium Chloride 0.9% 100 ML IVPB SCH (09:45)
[2018-11-19] MEDS: D5 1/2 NS w/20 mEq KCL 1,000 ML IV SCH ×2 (09:47→23:22)
[2018-11-19] MEDS: Scopolamine 1.5 mg/72 hour Patch TD SCH (09:48)
[2018-11-19] MEDS: Famotidine/PF 20 mg/2ml Vial SLOW IVP SCH ×2 (09:53→21:50)
--- NOTE | 2018-11-19 11:19 | ULT ---
ULTRASOUND WITH DOPPLER DUPLEX VENOUS LOWER EXTREMITY BILATERAL CPT: 21007 ICD-10-PCS: B54D HISTORY: Lower extremity pain. TECHNIQUE: Color flow Doppler, spectral waveform analysis of pulsed Doppler, and kidd-scale imaging with awa nazario and augmentation, were used to evaluate the bilateral common femoral, femoral, popliteal, mainframe analyst ior tibial, and superficial femoral, veins; and the proximal portions of the profunda femoral and gre ater saphenous, veins. FINDINGS: There is appropriate compressibility and flow within the deep venous system of each lower extremity. IMPRESSION: No DVT identified within the visualized bilateral lower extremities. POS: [facility]
[2018-11-19] MEDS: Acetaminophen 650 MG/20.3 ML UDCUP PO PRN (19:26)
[2018-11-19 19:37] LABS: Bilirubin Negative (Negative); Blood, Urine Small (Negative); Clarity CLEAR (Clear); Glucose, Urine (Dipstick) 100 mg/dL (Negative); Leukocyte Negative (Negative); Nitrite Negative (Negative); Protein, Urine (Dipstick) 30 mg/dL (Neg-Trace); Specific Gravity, Urine 1.015 (1.002-1.036); pH, Urine 7.5 (5.0-9.0)
[2018-11-19 19:38] LABS: Bacteria/HPF Rare-Few HPF (None Seen); Hyaline Casts/LPF 4-6 HYALINE CAST LPF (0-3 Hyaline); Squamous Epithelial 0-3 HPF (0-3)
--- NOTE | 2018-11-19 19:51 | RAD ---
RADIOGRAPH CHEST 1 VIEW: Date: 11/19/2018 Time: 6:52 p.m. HISTORY: A 68-year-old female with fever. COMPARISON: 11/17/2018 FINDINGS: Previously, there was an infiltrate at the left lower lobe. This infiltrate has increased in size. There may or may not be a concomitant a small left pleural effusion. No cardiomegaly. A tracheostom y tube has now replaced the endotracheal tube. The NG tube has been removed. The right lung is kavya r. No pneumothorax. No pulmonary edema. IMPRESSION: 1. Interval worsening of left lower lobe pneumonia. 2. Replacement of endotracheal tube with tracheostomy tube. MAKAYLA [] POS: [facility]
[2018-11-20 05:26] LABS: Anion Gap 16 mmol/L (10-20); BUN (Urea Nitrogen) 18 mg/dL (9.8-20.1); Calc. Creatinine Clearance 67 mL/min (70-130); Calcium 8.5 mg/dL (7.8-10.44); Carbon Dioxide 22 mmol/L (23-31); Chloride 109 mmol/L (98-107); Estimated GFR-MDRD 84; Glucose 110 mg/dL (80-115); Magnesium 1.8 mg/dL (1.6-2.6); Potassium 3.4 mmol/L (3.5-5.1); Sodium 144 mmol/L (136-145)
[2018-11-20 05:51] LABS: Band 11 % (5-11); Hemoglobin 11.6 g/dL (12.0-16.0); Lymphocytes 14 % (21-51); MDiff Complete? YES; Mean Corpuscular HGB CONC 31.7 g/dL (32.0-36.0); Mean Corpuscular Hemoglobin 28.7 pg (27.0-31.0); Mean Corpuscular Volume 90.5 fL (78.0-98.0); Mean Platelet Volume 8.3 fL (7.4-10.4); Metamyelocyte 2 % (0-0); Monocytes 11 % (0-10); Neutrophil 62 % (42-75); Platelet Count 287 thou/uL (130-400); Platelet Morphology Comment Appears Adequate; RBC Distribution Width 12.2 % (11.5-14.5); Red Blood Cell (RBC) Count 4.05 mill/uL (4.20-5.40); White Blood Cell (WBC) Count 16.6 thou/uL (4.8-10.8)
[2018-11-20] MEDS: Acetaminophen 650 MG/20.3 ML UDCUP PO PRN ×2 (05:53→15:00)
[2018-11-20] MEDS ORDERED: Sodium Chloride 0.45% 1,000 ML IV SCH (06:45)
--- NOTE | 2018-11-20 08:30 | PRG ---
DATE OF SERVICE: 11/20/2018 NEUROSURGERY PROGRESS NOTE Ms. Camargo has subarachnoid hemorrhage, day 7, post clipping day 6, from right MCA aneurysm, subarachnoid hemorrhage, and intraparenchymal hemorrhage. I saw Ms. Camargo in our ICU room this morning. Her is not available to speak with today, but I did run into her daughter and updated her. Yesterday, Ms. Camargo was changed to a D5 half-normal saline drip with 20 mEq of KCl that is still running this morning. When I see Ms. Camargo this morning, she has an oxygen delivered by facemask in front of her tracheostomy. She is off the ventilator. Her T-max was 103 degrees Fahrenheit and her urinalysis showed a rare urine bacteria. Cultures are pending. Ms. Camargo grimaces to stimulus. She localizes quite briskly with the right upper and lower extremity. She tries to use her foot to push my arm away when I am providing noxious stimuli. She uses her arm as well. The left arm starts to flex more so than extend. Left leg continues to extend. When I open her eyes, she gazes around the room. Her pupils do react. Scalp is well-approximated and there is no evidence of infection there. Sodium has dropped from 151 to 144, likely with the change of IV fluids. Urine output is a bit up but not overtly so. I am going to change Ms. Camargo back to 1.5 normal saline. I like running this fluid as it is more protective against vasospasm. She is in the heart of the vasospasm currently. I believe she is at high risk for this. Further, I do not like to manage patients with significant brain pathology using any dextrose in the fluid. All potassium supplementation can be done through the PEG. Running a sodium in the low 150s would be reasonable, which is where she was on the 1.5 normal saline. We will keep her volume expanded as well by running that fluid. I am a bit concerned about the white count and the fever. We will await the cultures of the sputum, urine, and blood and make antibiotic decisions with that information. Thankfully, her ultrasound for DVT was negative. I updated the family on her condition as best I could. Job ID: [id number]
--- NOTE | 2018-11-20 09:17 | RAD ---
PORTABLE CHEST: Date: 11/20/18 COMPARISON: 11/19/18. HISTORY: Respiratory distress. FINDINGS: Heart size within normal limits. Atherosclerotic changes of aorta. Chronic lung changes seen. Tracheo stomy tube present. IMPRESSION: Stable exam. POS: [facility]
[2018-11-20] MEDS: Famotidine/PF 20 mg/2ml Vial SLOW IVP SCH (09:53)
[2018-11-20] MEDS: cefTRIAXone\\ROCEPHIN 1 GM in Sodium Chloride 0.9% 100 ML IVPB SCH (09:53)
--- NOTE | 2018-11-20 09:55 | PRG ---
DATE OF SERVICE: 11/20/2018 SUBJECTIVE: This morning, she is off the vent, still encephalopathic, still not moving much at the right side. OBJECTIVE: VITAL SIGNS: Saturations 100%, blood pressure 160/87, pulse 110, and temperature is 101.3. CHEST: Decreased breath sounds, no wheezing. CARDIAC: Normal S1 and S2. ABDOMEN: No mass. LABORATORY DATA: White count 16,000, hemoglobin and hematocrit 11 and 36. IMAGING STUDIES: X-ray shows a left-sided retrocardiac pneumonia. IMPRESSION: Respiratory failure, aneurysm with bleed. PLAN: Continue supportive care. Broad-spectrum antibiotics with culture of sputum, _LTAC placement. Job ID: [id number] [facility]
[2018-11-20] MEDS: Sodium Chloride 256 MEQ in Sterile Water Injection 936 ML IV SCH ×2 (09:58→21:44)
[2018-11-20] MEDS: Famotidine 20 MG TAB PO SCH (20:46)
[2018-11-20] MEDS: Labetalol HCl 100 MG/20 ML VIAL SLOW IVP PRN (21:03)
[2018-11-21 07:09] LABS: #Eosinphils 0.1 thou/uL (0.0-0.7); #Lymphocytes 1.9 thou/uL (1.20-3.40); #Monocytes 1.5 thou/uL (0.11-0.59); #Neutrophils 11.7 thou/uL (1.40-6.50); %Basophils 0.2 % (0.0-1.0); %Eosinophils 0.7 % (0.0-10.0); %Lymphocytes 12.4 % (21.0-51.0); %Monocytes 9.9 % (0.0-10.0); %Neutrophils 76.7 % (42.0-75.0); Hemoglobin 10.8 g/dL (12.0-16.0); Mean Corpuscular HGB CONC 31.7 g/dL (32.0-36.0); Mean Corpuscular Hemoglobin 28.6 pg (27.0-31.0); Mean Corpuscular Volume 90.2 fL (78.0-98.0); Mean Platelet Volume 7.8 fL (7.4-10.4); Platelet Count 306 thou/uL (130-400); RBC Distribution Width 12.2 % (11.5-14.5); Red Blood Cell (RBC) Count 3.75 mill/uL (4.20-5.40); White Blood Cell (WBC) Count 15.2 thou/uL (4.8-10.8)
--- NOTE | 2018-11-21 07:12 | PRG ---
DATE OF SERVICE: 11/21/2018 NEUROSURGERY PROGRESS NOTE I saw Ms. Camargo in her ICU room this morning. She is subarachnoid hemorrhage day 8 and post clipping day 7 from right MCA aneurysm rupture. Ms. Camargo has had some neurological improvement over the course of this week and she continues to do so. No events were reported overnight. Dietary has left some recommendations for increased water flushes, but I disagree with those. Yesterday, the T-max reached to 101.4 degrees Fahrenheit, blood pressures have ranged from 130s to 180s. Other vital signs have been stable. Ms. Camargo is breathing through a tracheostomy. There is significant amount of thick brown-colored secretions. Ms. Camargo's neurological function is a bit improved since yesterday. After I opened her eyes to check her pupils, she keeps her left eye open on her own and looks around the room. She has not yet tried to speak. She is not yet following commands for me, but she remains quite purposeful on the right side of her body, moving her foot and her hand to remove the noxious stimuli. She is flexing the left lower extremity to stimulus and she is now beginning to flex the left upper extremity, almost localizing. Laboratory evaluations are pending this morning. Yesterday, sodium was 144, but we changed the fluid since then. Plan for today is to not increase the water flushes of the gastrostomy. If extra flushes are needed to keep it patent, we can use some saline, but I think minimal water flushes should do the job. We will keep her on hypertonic saline by IV in an effort to prevent vasospasm. I am pleases with Ms. Camargo's progress in each few days, she seems to make some increase in her neurological function. Hopefully, this continues. When she is not needing active suctioning so frequently and she is resting comfortably with a tracheostomy, then she can move out of the ICU, but I think it is a bit early to do so currently. Job ID: [id number]
[2018-11-21 07:26] LABS: Anion Gap 14 mmol/L (10-20); BUN (Urea Nitrogen) 18 mg/dL (9.8-20.1); Calc. Creatinine Clearance 70 mL/min (70-130); Calcium 8.2 mg/dL (7.8-10.44); Carbon Dioxide 22 mmol/L (23-31); Chloride 110 mmol/L (98-107); Estimated GFR-MDRD 87; Glucose 118 mg/dL (80-115); Magnesium 1.9 mg/dL (1.6-2.6); Potassium 3.8 mmol/L (3.5-5.1); Sodium 142 mmol/L (136-145)
--- NOTE | 2018-11-21 08:24 | RAD ---
CHEST 1 VIEW: HISTORY: A 68-year-old female with a history of respiratory insufficiency. Patient on ventilator. COMPARISON: 11/20/2018. FINDINGS: Again noted are extensive pleural and parenchymal opacity changes in the left retrocardiac region. T his certainly could represent some degree of pneumonia and/or atelectasis. Patchy linear and interst itial markings noted bilaterally. IMPRESSION: Overall stable abnormal opacity changes in the left retrocardiac region, evidence for pneumonia and/o r atelectasis. Stable scattered interstitial lung changes. No new process. POS: [facility]
--- NOTE | 2018-11-21 09:14 | PRG ---
DATE OF SERVICE: 11/21/2018 SUBJECTIVE: This morning, her breathing is less labored. X-ray still shows persistent left-sided infiltrate. She is not moving her left side. OBJECTIVE: VITAL SIGNS: Her maximum temperature was 99.5, sats are 96% on the trach collar, blood pressure 155/88, respiratory rate 18, pulse 80. I's and O's are good. CHEST: Decreased breath sounds. No wheezing. CARDIAC: Normal S1, S2. No gallops. ABDOMEN: No masses. LABORATORY DATA: Sodium is 142. White count 15,000. IMPRESSION: Left-sided pneumonia, probably aspiration. PLAN: Continue normal saline as per Neurosurgery. Continue broad-spectrum antibiotics. Await cultures. Eventual long-term placement. Did not want to keep in the ICU for a period of time. Continue observation. Job ID: [id number]
[2018-11-21] MEDS: Famotidine 20 MG TAB PO SCH ×2 (09:22→21:23)
[2018-11-21] MEDS ORDERED: cefTRIAXone\\ROCEPHIN 1 GM VIAL ONE (09:24)
[2018-11-21] MEDS: cefTRIAXone\\ROCEPHIN 1 GM in Sodium Chloride 0.9% 100 ML IVPB SCH (09:25)
[2018-11-21] MEDS: Labetalol HCl 100 MG/20 ML VIAL SLOW IVP PRN ×2 (11:22→12:29)
[2018-11-21] MEDS: Sodium Chloride 256 MEQ in Sterile Water Injection 936 ML IV SCH ×2 (11:56→21:36)
[2018-11-21] MEDS: Acetaminophen 650 MG/20.3 ML UDCUP PO PRN (21:23)
[2018-11-22 05:03] LABS: #Eosinphils 0.2 thou/uL (0.0-0.7); #Monocytes 1.8 thou/uL (0.11-0.59); #Neutrophils 12.7 thou/uL (1.40-6.50); %Basophils 0.2 % (0.0-1.0); %Eosinophils 0.9 % (0.0-10.0); %Lymphocytes 11.7 % (21.0-51.0); %Monocytes 10.8 % (0.0-10.0); %Neutrophils 76.4 % (42.0-75.0); Hemoglobin 12.8 g/dL (12.0-16.0); Mean Corpuscular HGB CONC 30.7 g/dL (32.0-36.0); Mean Corpuscular Hemoglobin 29.9 pg (27.0-31.0); Mean Corpuscular Volume 97.5 fL (78.0-98.0); Mean Platelet Volume 8.4 fL (7.4-10.4); Platelet Count 278 thou/uL (130-400); RBC Distribution Width 12.8 % (11.5-14.5); Red Blood Cell (RBC) Count 4.27 mill/uL (4.20-5.40); White Blood Cell (WBC) Count 16.7 thou/uL (4.8-10.8)
[2018-11-22 05:11] LABS: Chloride 113 mmol/L (98-107); Potassium 3.6 mmol/L (3.5-5.1); Sodium 138 mmol/L (136-145)
[2018-11-22 05:12] LABS: Calcium 8.3 mg/dL (7.8-10.44); Glucose 108 mg/dL (80-115)
[2018-11-22 05:14] LABS: Carbon Dioxide 13 mmol/L (23-31)
[2018-11-22 05:15] LABS: Calc. Creatinine Clearance 65 mL/min (70-130); Estimated GFR-MDRD 81
[2018-11-22 05:16] LABS: BUN (Urea Nitrogen) 18 mg/dL (9.8-20.1)
[2018-11-22] MEDS: Labetalol HCl 100 MG/20 ML VIAL SLOW IVP PRN (07:08)
[2018-11-22 07:11] LABS: Anion Gap 16 mmol/L (10-20)
--- NOTE | 2018-11-22 08:11 | RAD ---
PORTABLE CHEST: Date: 11/22/18 PROVIDED CLINICAL HISTORY: Respiratory insufficiency. FINDINGS: Comparison with 11/21/18. Significant interval change with respect to the prior examination is not apparent. IMPRESSION: As above. POS: [facility]
--- NOTE | 2018-11-22 09:02 | PRG ---
DATE OF SERVICE: 11/22/2018 SUBJECTIVE: Ms. Camargo is now 8 days status post left upper and left lower extremity, the most I am getting is withdraw from pain. Left upper extremity really not even that, just some slight movement in response to the pain with no localization. The left foot has definitively withdrawal response. She does not open her eyes for me or make attempts to. Unfortunately, she makes no attempt to speak. When checking her pupils, she does try to close her eyes. She has minimally reactive bilateral pupils, left is somewhat greater than right in diameter. Somewhat of a concern in addition her sodium is trended down in the last 4 days. On the , it was 144; on the , it was 142; and then this morning, the latest lab is 138, this is all in the setting of receiving 1.5 sodium chloride solution, I would expect for her sodium to be doing, it is possible that this may represent salt wasting. I will discuss with Dr. Suh and order labs as deemed appropriate. Job ID: [id number]
[2018-11-22] MEDS: Scopolamine 1.5 mg/72 hour Patch TD SCH (09:13)
[2018-11-22] MEDS: Famotidine 20 MG TAB PO SCH ×2 (09:15→21:37)
[2018-11-22] MEDS: cefTRIAXone\\ROCEPHIN 1 GM in Sodium Chloride 0.9% 100 ML IVPB SCH (09:15)
[2018-11-22] MEDS: Sodium Chloride 256 MEQ in Sterile Water Injection 936 ML IV SCH (13:32)
--- NOTE | 2018-11-22 22:15 | PRG ---
DATE OF SERVICE: 11/22/2018 SUBJECTIVE: Raman is clinically unchanged. She has trach in place. OBJECTIVE: VITAL SIGNS: She is afebrile. Heart rate is 88, respiratory rate is in the high 20s, oximetry is 91%, and blood pressure 150/81. GENERAL: She does not awaken to follow commands. LUNGS: Remarkable for coarse equal breath sounds. HEART: Regular rhythm. S1 and S2 normal. ABDOMEN: Soft and nontender without guarding or masses. EXTREMITIES: Without asymmetry or edema. LABORATORY DATA: White count 16.7, hemoglobin 12.8, and platelets 278. Sodium 138, potassium 3.6, chloride 113, bicarb 13, BUN 18, and creatinine 0.72. IMPRESSION: Respiratory failure associated with central nervous system bleed, clinically stable with a tracheostomy and feeding tube in place. It is reasonable for her to transfer out of the Critical Care Unit to the intermediate care unit. Critical care time is 35 minutes. Job ID: [id number] [facility]
[2018-11-23] MEDS: Sodium Chloride 256 MEQ in Sterile Water Injection 936 ML IV SCH ×2 (01:49→21:56)
[2018-11-23 05:49] LABS: #Eosinphils 0.1 thou/uL (0.0-0.7); #Lymphocytes 1.5 thou/uL (1.20-3.40); #Monocytes 1.3 thou/uL (0.11-0.59); #Neutrophils 14.9 thou/uL (1.40-6.50); %Basophils 0.1 % (0.0-1.0); %Eosinophils 0.5 % (0.0-10.0); %Lymphocytes 8.5 % (21.0-51.0); %Monocytes 7.5 % (0.0-10.0); %Neutrophils 83.5 % (42.0-75.0); Hemoglobin 11.3 g/dL (12.0-16.0); Mean Corpuscular HGB CONC 32.1 g/dL (32.0-36.0); Mean Corpuscular Volume 93.4 fL (78.0-98.0); Mean Platelet Volume 7.9 fL (7.4-10.4); Platelet Count 357 thou/uL (130-400); RBC Distribution Width 12.6 % (11.5-14.5); Red Blood Cell (RBC) Count 3.78 mill/uL (4.20-5.40); White Blood Cell (WBC) Count 17.8 thou/uL (4.8-10.8)
[2018-11-23 06:12] LABS: Anion Gap 14 mmol/L (10-20); BUN (Urea Nitrogen) 19 mg/dL (9.8-20.1); Calc. Creatinine Clearance 67 mL/min (70-130); Calcium 8.1 mg/dL (7.8-10.44); Carbon Dioxide 19 mmol/L (23-31); Chloride 111 mmol/L (98-107); Estimated GFR-MDRD 84; Glucose 119 mg/dL (80-115); Magnesium 1.8 mg/dL (1.6-2.6); Potassium 3.2 mmol/L (3.5-5.1); Sodium 141 mmol/L (136-145)
[2018-11-23] MEDS: Famotidine 20 MG TAB PO SCH ×2 (09:42→20:31)
[2018-11-23] MEDS: cefTRIAXone\\ROCEPHIN 1 GM in Sodium Chloride 0.9% 100 ML IVPB SCH (09:43)
--- NOTE | 2018-11-23 11:08 | PRG ---
DATE OF SERVICE: 11/23/2018 Ms. Camargo's potassium is 3.8. Her sodium is 141, which is an improvement from yesterday, where it was 138. Glucose this morning is 119, we will add Acc-Chek to follow this. Potassium needs to be corrected with the potassium chloride protocol already in place. Her exam remains entirely stable to where it has been. She has not made significant amount of progress in the last two days that we have seen her. We will continue to follow. Job ID: [id number]
[2018-11-23] MEDS: hydrALAZINE 20 MG/ML VIAL SLOW IVP PRN ×2 (11:48→13:20)
--- NOTE | 2018-11-23 16:49 | PRG ---
DATE OF SERVICE: 11/23/2018 SUBJECTIVE: Ms. Camargo is hospital day 10 from a large intercerebral and subarachnoid hemorrhage from a right MCA bifurcation region aneurysm. She has undergone hemicraniectomy and clipping of the aneurysm. In the past 48 hours, she has remained for the most part, stable neurologically. She did transition from the ICU to the IMCU. Her labs have been relatively stable. Neurologically, she will periodically open an eye, but does not follow commands, although she does have some movements, which appear to be purposeful. Her condition remains a tenuous one. She will continue to receive appropriate nutrition. We will remain vigilant with respect to her lab values. Job ID: [id number]
[2018-11-24 05:50] LABS: Anion Gap 12 mmol/L (10-20); BUN (Urea Nitrogen) 26 mg/dL (9.8-20.1); Calc. Creatinine Clearance 68 mL/min (70-130); Calcium 8.1 mg/dL (7.8-10.44); Carbon Dioxide 18 mmol/L (23-31); Chloride 114 mmol/L (98-107); Estimated GFR-MDRD 80; Glucose 126 mg/dL (80-115); Magnesium 2.1 mg/dL (1.6-2.6); Potassium 3.3 mmol/L (3.5-5.1); Sodium 141 mmol/L (136-145)
[2018-11-24 05:55] LABS: Band 2 % (5-11); Hemoglobin 10.8 g/dL (12.0-16.0); Lymphocytes 13 % (21-51); MDiff Complete? YES; Mean Corpuscular HGB CONC 32.2 g/dL (32.0-36.0); Mean Corpuscular Volume 93.1 fL (78.0-98.0); Mean Platelet Volume 7.7 fL (7.4-10.4); Monocytes 6 % (0-10); Neutrophil 79 % (42-75); Platelet Count 468 thou/uL (130-400); Platelet Morphology Comment Appears Increased; Red Blood Cell (RBC) Count 3.58 mill/uL (4.20-5.40); White Blood Cell (WBC) Count 21.1 thou/uL (4.8-10.8)
--- NOTE | 2018-11-24 07:10 | PRG ---
DATE OF SERVICE: 11/24/2018 Neurosurgery progress note. Ms. Camargo has subarachnoid hemorrhage day 12, post clipping day 11 from a large right MCA aneurysm rupture resulting in parenchymal and subarachnoid hemorrhage. She is making a very slow recovery but headed in the right direction over the last week. No events reported over the weekend. Of the recorded vitals, I do not see any fevers. Neurological examination is slightly improved. I asked her to raise two fingers and with some time and reinforcement, I believe that she did follow commands. The same is true with wiggling the right toes. On the left side, there is no purposeful movement, but the left arm does seem to flex toward the stimulus and the left leg withdraws. Sodium is 141. She has a high white blood cell count. I plan on continuing the hypertonic saline for the next week. The elevated white blood cell count is not correlated with the fever, but we do need to be vigilant about her urine's, her sputum and blood cultures and I may repeat those today. I will get an ultrasound looking for DVT, which has not been done in the last 3 days. The family was not here for communication this morning. Job ID: [id number]
[2018-11-24] MEDS: cefTRIAXone\\ROCEPHIN 1 GM in Sodium Chloride 0.9% 100 ML IVPB SCH (08:33)
[2018-11-24] MEDS: Famotidine 20 MG TAB PO SCH ×2 (08:33→20:26)
[2018-11-24 12:47] LABS: Bilirubin Negative (Negative); Blood, Urine Negative (Negative); Clarity CLEAR (Clear); Glucose, Urine (Dipstick) Negative (Negative); Leukocyte Negative (Negative); Nitrite Negative (Negative); Protein, Urine (Dipstick) 30 mg/dL (Neg-Trace); Specific Gravity, Urine 1.025 (1.002-1.036)
[2018-11-24 12:50] LABS: Bacteria/HPF None Seen HPF (None Seen); WBC/HPF 0-3 HPF (0-3)
--- NOTE | 2018-11-24 14:31 | PRG ---
DATE OF SERVICE: 11/24/2018 SUBJECTIVE: Colleen Camargo remains unchanged. OBJECTIVE: VITAL SIGNS: She is afebrile, respiratory rate 16, heart rate is in the 80s, oximetry is 100% on trach collar, and blood pressure 154/82. LUNGS: Clear. HEART: Regular rhythm. ABDOMEN: Soft. IMPRESSION: Status post aneurysm clipping. She is beginning to follow commands. She is still on hypertonic saline, which prevents her being transferred to long-term acute care. Tracheostomy suctioning probably will not yield any pathogens given that her airway is likely colonized from prolonged intubation and tracheostomy. Blood cultures are being considered by Dr. Lawton. Job ID: [id number]
--- NOTE | 2018-11-24 16:38 | ULT ---
BILATERAL LOWER EXTREMITY VENOUS ULTRASOUND WITH DOPPLER: HISTORY: Immobility. COMPARISON: 11/19/2018. TECHNIQUE: Moreno scale, color flow, Doppler imaging, with spectral waveform analysis was performed of the left an d right lower extremity system. FINDINGS: Bilaterally, there is compressibility, presence of flow, and augmentation of the common femoral, prof unda vein, and popliteal vein. There is flow in bilateral greater saphenous veins, profunda vein, an d posterior tibial vein. IMPRESSION: No evidence of thrombus in the left or right deep venous system. POS: [facility]
[2018-11-24] MEDS: Sodium Chloride 256 MEQ in Sterile Water Injection 936 ML IV SCH (20:52)
[2018-11-25 04:42] LABS: #Eosinphils 0.1 thou/uL (0.0-0.7); #Lymphocytes 1.4 thou/uL (1.20-3.40); #Monocytes 1.3 thou/uL (0.11-0.59); %Eosinophils 0.4 % (0.0-10.0); %Lymphocytes 8.2 % (21.0-51.0); %Neutrophils 83.4 % (42.0-75.0); Hemoglobin 10.1 g/dL (12.0-16.0); Mean Corpuscular HGB CONC 31.6 g/dL (32.0-36.0); Mean Corpuscular Hemoglobin 29.8 pg (27.0-31.0); Mean Corpuscular Volume 94.3 fL (78.0-98.0); Mean Platelet Volume 7.4 fL (7.4-10.4); Platelet Count 490 thou/uL (130-400); RBC Distribution Width 13.7 % (11.5-14.5); White Blood Cell (WBC) Count 16.8 thou/uL (4.8-10.8)
[2018-11-25 05:04] LABS: Anion Gap 12 mmol/L (10-20); BUN (Urea Nitrogen) 23 mg/dL (9.8-20.1); Calc. Creatinine Clearance 77 mL/min (70-130); Calcium 7.9 mg/dL (7.8-10.44); Carbon Dioxide 18 mmol/L (23-31); Chloride 117 mmol/L (98-107); Estimated GFR-MDRD 90; Glucose 121 mg/dL (80-115); Magnesium 2.1 mg/dL (1.6-2.6); Potassium 3.3 mmol/L (3.5-5.1); Sodium 144 mmol/L (136-145)
--- NOTE | 2018-11-25 07:36 | PRG ---
DATE OF SERVICE: 11/25/2018 NEUROSURGERY PROGRESS NOTE SUBJECTIVE: I saw Ms. Camargo in the intermediate care unit this morning. Her is in the room and says she has been improving over the weekend as he watches. No events have been reported. An ultrasound of the legs was done yesterday. OBJECTIVE: VITAL SIGNS: Overnight, the maximum temperature recorded was 100.0 degrees Fahrenheit. Blood pressures have been in the 140s to 160s. NEUROLOGIC: On neurological examination, Ms. Camargo opens her eyes to voice. She follows commands with the right arm, the left is flexing or localizing and the left leg is withdrawn. DIAGNOSTIC DATA: Ultrasound of the lower extremities was negative for DVT. LABORATORY DATA: White blood cell count is 16.8, down from 21.1. Sodium is 144, increased from 141. Magnesium is 2.1. ASSESSMENT AND PLAN: Ms. Camargo is indeed improving neurologically. It has been a slow, but steady improvement. She is now at subarachnoid hemorrhage day 13, post clipping day 12 and it is in the middle of her vasospasm. We will continue to monitor neurological status and if she improves and white count returns to normal, we will wait a few days and transfer her to floor care. She will need usp placement eventually and looking for that place can start now. In 2 to 3 months after operation, we will replace the bone flap. Family has been updated. Job ID: [id number]
[2018-11-25] MEDS: cefTRIAXone\\ROCEPHIN 1 GM in Sodium Chloride 0.9% 100 ML IVPB SCH (09:03)
[2018-11-25] MEDS: Scopolamine 1.5 mg/72 hour Patch TD SCH (09:07)
[2018-11-25] MEDS: Famotidine 20 MG TAB PO SCH ×2 (09:08→21:10)
[2018-11-25] MEDS: hydrALAZINE 20 MG/ML VIAL SLOW IVP PRN (10:30)
--- NOTE | 2018-11-25 18:02 | PRG ---
DATE OF SERVICE: 11/25/2018 SUBJECTIVE: Colleen Camargo is clinically unchanged. OBJECTIVE: VITAL SIGNS: She had temperature to 101 this morning, respiratory rate 20, oximetry is 100%, blood pressure 151/75. LUNGS: Remarkable for coarse equal breath sounds. HEART: Regular rhythm. ABDOMEN: Soft. LABORATORY STUDIES: White count 16.8, hemoglobin 10.1, platelets 490,000. Electrolytes are unremarkable. She was noted to have an elevated temperature, we will check blood cultures on her. She had a urine culture done earlier. She is not in a point where she can be transferred. The actuarial trainee has been having some difficulty getting the to stay around to meet with her or return phone calls. He has not given up her social security number, so she can be evaluated for LTAC placement until he does so. I believe Adult Protective Services will be contacted since he is the primary caregiver and necessary for consent for a transfer at some point. We will check a chest x-ray in the morning. Job ID: [id number] [facility]
[2018-11-25] MEDS: Sodium Chloride 256 MEQ in Sterile Water Injection 936 ML IV SCH (23:42)
[2018-11-26 05:09] LABS: #Basophils 0.1 thou/uL (0.0-0.2); #Eosinphils 0.1 thou/uL (0.0-0.7); #Lymphocytes 1.5 thou/uL (1.20-3.40); #Monocytes 1.5 thou/uL (0.11-0.59); #Neutrophils 13.7 thou/uL (1.40-6.50); %Basophils 0.5 % (0.0-1.0); %Eosinophils 0.8 % (0.0-10.0); %Lymphocytes 8.7 % (21.0-51.0); %Monocytes 8.6 % (0.0-10.0); %Neutrophils 81.4 % (42.0-75.0); Hemoglobin 11.1 g/dL (12.0-16.0); Mean Corpuscular HGB CONC 31.7 g/dL (32.0-36.0); Mean Corpuscular Volume 94.5 fL (78.0-98.0); Mean Platelet Volume 7.5 fL (7.4-10.4); Platelet Count 489 thou/uL (130-400); RBC Distribution Width 13.8 % (11.5-14.5); Red Blood Cell (RBC) Count 3.69 mill/uL (4.20-5.40); White Blood Cell (WBC) Count 16.8 thou/uL (4.8-10.8)
[2018-11-26 05:26] LABS: Anion Gap 12 mmol/L (10-20); BUN (Urea Nitrogen) 19 mg/dL (9.8-20.1); Calc. Creatinine Clearance 79 mL/min (70-130); Calcium 7.9 mg/dL (7.8-10.44); Carbon Dioxide 19 mmol/L (23-31); Chloride 114 mmol/L (98-107); Estimated GFR-MDRD Greater than 90; Glucose 119 mg/dL (80-115); Magnesium 2.1 mg/dL (1.6-2.6); Potassium 3.4 mmol/L (3.5-5.1); Sodium 142 mmol/L (136-145)
[2018-11-26] MEDS: hydrALAZINE 20 MG/ML VIAL SLOW IVP PRN (06:36)
--- NOTE | 2018-11-26 08:36 | PRG ---
DATE OF SERVICE: 11/26/2018 SUBJECTIVE: Ms. Camargo is a subarachnoid hemorrhage day 13, post clipping day 12, from a large right MCA aneurysm rupture causing parenchymal and subarachnoid hemorrhage. Ms. Camargo has made slow, but steady neurological improvement over the last week. She continues to do so. At yesterday, she reached a fever maximum of 101.0 degrees Fahrenheit. Blood pressures are stable. OBJECTIVE: On examination, Ms. Camargo's incision on craniectomy site is less tense today. Ecchymosis around the eyes, improving. She opens her left eye spontaneously for me. She is intermittently following commands, but it requires a significant amount of patience and repetitive commands before she decides to follow. With the noxious stimulus to the ends of the extremities, she flexes on the left side with the following commands and purposeful motion is on the right. LABORATORY DATA: Sodium is 142. White blood cell count is 16.8, is stable. Blood cultures are pending and urine cultures are pending. Urinalysis did not show significant bacteriuria yesterday. ASSESSMENT AND PLAN: We will continue to monitor Ms. Camargo. She will need LTAC and/or custodial placement after this and the social work should begin that process. Unfortunately, the has been less than forthcoming with her social security number, and this complicates the placement issue. Ms. Camargo is still in the vasospasm. Although we are getting towards the end of it, which is encouraging. She has made neurological progress rather than deterioration, but we will keep her on 1.5 normal saline at least for another week. We can decrease the rate starting next week, but over the weekend, we will continue at the current rate of 90 mL an hour. Job ID: [id number]
[2018-11-26] MEDS: Famotidine 20 MG TAB PO SCH ×2 (08:59→20:56)
--- NOTE | 2018-11-26 09:15 | RAD ---
AP VIEW CHEST: Date: 11/26/18 HISTORY: Fever. FINDINGS: Comparison made to previous exam from 11/22/18. AP view of chest demonstrates a tracheostomy tube in place. EKG leads seen over the chest. Bilateral pleural effusions seen. Pulmonary vasculature congestion is noted. No evidence of pneumothorax seen. IMPRESSION: Interval development of bilateral pleural effusions and pulmonary vascular congestion. POS: [facility]
--- NOTE | 2018-11-26 14:38 | PRG ---
DATE OF SERVICE: 11/26/2018 SUBJECTIVE: Ms. Camargo is unchanged clinically. She has had no more fever. OBJECTIVE: VITAL SIGNS: She is afebrile, heart rate 77, respiratory rate is 26 , oximetry is 100% on trach collar, blood pressure 154/81. LUNGS: Clear. HEART: Regular rate and rhythm. S1 and S2 are normal. ABDOMEN: Soft and nontender. EXTREMITIES: Without edema. LABORATORY DATA: Chest radiograph shows bibasilar atelectasis, perhaps small effusions. I do not feel that the infiltrates are pneumonia. Intake and output positive 120 mL. She may have some mild pulmonary edema, most likely to be neurogenic in origin. Cultures were done yesterday that are negative at 24 hours. IMPRESSION AND PLAN: We will continue supportive care. The still has not been at the bedside since apparently early yesterday morning. The caseworkers do not have a social security number to get her evaluated for long-term acute care placement which she will eventually need. Adult Protective Service has been consulted. Job ID: [id number] [facility]
[2018-11-26] MEDS: Sodium Chloride 256 MEQ in Sterile Water Injection 936 ML IV SCH (20:58)
[2018-11-27 05:10] LABS: #Basophils 0.1 thou/uL (0.0-0.2); #Eosinphils 0.2 thou/uL (0.0-0.7); #Lymphocytes 1.3 thou/uL (1.20-3.40); #Monocytes 1.4 thou/uL (0.11-0.59); #Neutrophils 11.2 thou/uL (1.40-6.50); %Basophils 0.4 % (0.0-1.0); %Eosinophils 1.3 % (0.0-10.0); %Monocytes 10.2 % (0.0-10.0); %Neutrophils 79.2 % (42.0-75.0); Hemoglobin 11.5 g/dL (12.0-16.0); Mean Corpuscular HGB CONC 31.2 g/dL (32.0-36.0); Mean Corpuscular Hemoglobin 30.1 pg (27.0-31.0); Mean Corpuscular Volume 96.3 fL (78.0-98.0); Mean Platelet Volume 7.6 fL (7.4-10.4); Platelet Count 482 thou/uL (130-400); Red Blood Cell (RBC) Count 3.82 mill/uL (4.20-5.40); White Blood Cell (WBC) Count 14.2 thou/uL (4.8-10.8)
[2018-11-27 06:04] LABS: Anion Gap 11 mmol/L (10-20); BUN (Urea Nitrogen) 19 mg/dL (9.8-20.1); Calc. Creatinine Clearance 85 mL/min (70-130); Carbon Dioxide 20 mmol/L (23-31); Chloride 113 mmol/L (98-107); Estimated GFR-MDRD Greater than 90; Glucose 110 mg/dL (80-115); Magnesium 2.1 mg/dL (1.6-2.6); Potassium 3.4 mmol/L (3.5-5.1); Sodium 141 mmol/L (136-145)
[2018-11-27] MEDS: Sodium Chloride 256 MEQ in Sterile Water Injection 936 ML IV SCH ×2 (06:07→18:35)
--- NOTE | 2018-11-27 07:18 | PRG ---
DATE OF SERVICE: 11/27/2018 SUBJECTIVE: Ms. Camargo is a subarachnoid hemorrhage day 14, post clipping day 13 from right MCA aneurysm rupture resulting in parenchymal and subarachnoid hemorrhage. For over the last 10 days, Ms. Camargo has made slow, but steady neurological improvement. When I saw her this morning in the intermediate care unit, no events have been reported. There is current difficulty in finding placement for her. OBJECTIVE: VITAL SIGNS: Yesterday, maximum temperature reached was 100.5 degrees Fahrenheit. Blood pressures have been in the 140s to 160s and even one 170s. NEUROLOGIC: On examination this morning, Ms. Camargo does follow commands with repeated prompting. It takes a few minutes for her to start lifting her thumb and holding up her index finger or showing me 2 fingers, but eventually she does. She wiggles her toes. This is all happening around the right side. On the left, there is hemiparesis, it is quite dense. There might be some flexion to stimulus of the leg and arm versus withdrawal. Eventually, the left eye opens to voice. LABORATORY DATA: Today, sodium is 144. The white blood cell count is 14,000 and coming down. PLAN: Plan for Ms. Camargo is to continue the hypertonic saline at least through the weekend, if not into next week. We will leave the wilfrid in through the weekend. Placement is to be made in a long-term acute care facility or fdc so that after discharge, there is a safe destination. Job ID: [id number]
[2018-11-27] MEDS: Famotidine 20 MG TAB PO SCH ×2 (08:21→21:48)
[2018-11-27] MEDS: Labetalol HCl 100 MG/20 ML VIAL SLOW IVP PRN ×2 (16:21→23:31)
[2018-11-27] MEDS: hydrALAZINE 20 MG/ML VIAL SLOW IVP PRN (22:48)
[2018-11-28 05:19] LABS: Anion Gap 12 mmol/L (10-20); BUN (Urea Nitrogen) 17 mg/dL (9.8-20.1); Calc. Creatinine Clearance 88 mL/min (70-130); Calcium 8.1 mg/dL (7.8-10.44); Carbon Dioxide 21 mmol/L (23-31); Chloride 108 mmol/L (98-107); Estimated GFR-MDRD Greater than 90; Glucose 124 mg/dL (80-115); Magnesium 2.1 mg/dL (1.6-2.6); Potassium 3.4 mmol/L (3.5-5.1); Sodium 138 mmol/L (136-145)
[2018-11-28] MEDS: Sodium Chloride 256 MEQ in Sterile Water Injection 936 ML IV SCH ×2 (05:33→23:40)
[2018-11-28 05:49] LABS: #Eosinphils 0.2 thou/uL (0.0-0.7); #Lymphocytes 1.5 thou/uL (1.20-3.40); #Monocytes 1.6 thou/uL (0.11-0.59); #Neutrophils 13.5 thou/uL (1.40-6.50); %Basophils 0.3 % (0.0-1.0); %Eosinophils 1.3 % (0.0-10.0); %Lymphocytes 8.9 % (21.0-51.0); %Monocytes 9.7 % (0.0-10.0); %Neutrophils 79.8 % (42.0-75.0); Hemoglobin 11.4 g/dL (12.0-16.0); Mean Corpuscular HGB CONC 31.8 g/dL (32.0-36.0); Mean Corpuscular Hemoglobin 30.4 pg (27.0-31.0); Mean Corpuscular Volume 95.7 fL (78.0-98.0); Mean Platelet Volume 7.3 fL (7.4-10.4); Platelet Count 644 thou/uL (130-400); RBC Distribution Width 14.2 % (11.5-14.5); Red Blood Cell (RBC) Count 3.76 mill/uL (4.20-5.40); White Blood Cell (WBC) Count 16.9 thou/uL (4.8-10.8)
--- NOTE | 2018-11-28 07:47 | PRG ---
DATE OF SERVICE: 11/28/2018 NEUROSURGERY PROGRESS NOTE I saw Colleen Camargo in our intermediate care unit room this morning. Nursing reports they feel her skin is a bit more yellow than it has been. Otherwise, no events have been reported overnight. is not here this morning and I have not seen him yesterday either. Hopefully, progress is being made for placement. Overnight, I do not see any fevers recorded on our electronic chart. Blood pressures have been in the 150s to 170s. On examination, Ms. Camargo opens her left eye to loud voice to stimulus. She localizes quite well with enough repetitious commands. She eventually starts to follow commands with the right hand and right foot. The left side flexes to peripheral stimulation. Sodium this morning is 138, which is lower than it has been recently. White blood cell count is 16.9. We will continue hypertonic saline. We will limit our fluid flushes with any hypotonic fluid. We will get a set of LFTs to see what her bilirubin looks like as well as a panel of hepatic enzymes. We leave the wilfrid in at least over the weekend. Next week, we may get a CT scan to assess the spinal fluid distribution over the right hemisphere and we can do for placement in a long-term acute care facility or alf sometime next week. In preparation for doing so, we should change her from continuous to bolus feeds. Job ID: [id number]
[2018-11-28] MEDS: Scopolamine 1.5 mg/72 hour Patch TD SCH (09:13)
[2018-11-28] MEDS: Famotidine 20 MG TAB PO SCH ×2 (09:15→20:54)
[2018-11-28 10:22] LABS: Bilirubin, Direct 0.3 mg/dL (0.1-0.3); Bilirubin, Total 0.4 mg/dL (0.2-1.2)
--- NOTE | 2018-11-28 12:02 | PRG ---
DATE OF SERVICE: 11/28/2018 SUBJECTIVE: Colleen Camargo is essentially unchanged. OBJECTIVE: VITAL SIGNS: She is afebrile, heart rate is 86, respiratory rate is 23, blood pressure 163/84. LUNGS: Clear. HEART: Regular rhythm. S1 and S2 normal. ABDOMEN: Soft. EXTREMITIES: Without any edema. IMPRESSION: Status post trach for respiratory failure associated with subarachnoid bleed, slowly improving neurologically. PLAN: Continue supportive care. Job ID: [id number]
[2018-11-29] MEDS: Labetalol HCl 100 MG/20 ML VIAL SLOW IVP PRN (03:40)
[2018-11-29 06:06] LABS: #Basophils 0.1 thou/uL (0.0-0.2); #Eosinphils 0.1 thou/uL (0.0-0.7); #Monocytes 1.1 thou/uL (0.11-0.59); #Neutrophils 10.1 thou/uL (1.40-6.50); %Basophils 0.4 % (0.0-1.0); %Eosinophils 0.7 % (0.0-10.0); %Lymphocytes 8.1 % (21.0-51.0); %Monocytes 9.2 % (0.0-10.0); %Neutrophils 81.5 % (42.0-75.0); Hemoglobin 10.8 g/dL (12.0-16.0); Mean Corpuscular HGB CONC 31.5 g/dL (32.0-36.0); Mean Corpuscular Hemoglobin 30.3 pg (27.0-31.0); Mean Corpuscular Volume 96.2 fL (78.0-98.0); Mean Platelet Volume 7.3 fL (7.4-10.4); Platelet Count 610 thou/uL (130-400); RBC Distribution Width 14.1 % (11.5-14.5); Red Blood Cell (RBC) Count 3.57 mill/uL (4.20-5.40); White Blood Cell (WBC) Count 12.3 thou/uL (4.8-10.8)
[2018-11-29 06:25] LABS: Anion Gap 12 mmol/L (10-20); BUN (Urea Nitrogen) 18 mg/dL (9.8-20.1); Calc. Creatinine Clearance 78 mL/min (70-130); Calcium 7.9 mg/dL (7.8-10.44); Carbon Dioxide 22 mmol/L (23-31); Chloride 109 mmol/L (98-107); Estimated GFR-MDRD 88; Glucose 131 mg/dL (80-115); Potassium 3.6 mmol/L (3.5-5.1); Sodium 139 mmol/L (136-145)
[2018-11-29] MEDS: Famotidine 20 MG TAB PO SCH ×2 (08:48→21:18)
--- NOTE | 2018-11-29 09:13 | PRG ---
DATE OF SERVICE: 11/29/2018 The patient is a 68-year-old female who is status post subarachnoid hemorrhage day #16, status post aneurysmal clipping, postoperative day #15 for a large right MCA aneurysm. She is currently being monitored closely in the ICU. She is also status post trach and PEG. On my exam this morning, the patient does not open her eyes, but she does move her right side spontaneous to stimulation. Her incision appears to be healing well and no issues with drainage. There was concern for some yellowing of her skin yesterday by Dr. Lawton. Therefore, LFTs were sent. There is only slight elevation of AST and ALT. We will have the medicine team also reviewed. There is concern for development of DVT considering her immobilized status and I will repeat lower extremity ultrasound today to rule that out. We will continue appropriate supportive care and the patient will need LTAC placement in the future. Job ID: [id number]
--- NOTE | 2018-11-29 09:18 | PRG ---
DATE OF SERVICE: 11/29/2018 The patient has her eyes closed, lying in the bed and is arousable. Her wound is dry and the flap is engorged, but not hard. The patient is clinically stable and ultimately will require placement. We will arrange for ultrasound of the legs for surveillance today. Job ID: [id number]
[2018-11-29] MEDS: hydrALAZINE 20 MG/ML VIAL SLOW IVP PRN (11:57)
--- NOTE | 2018-11-29 12:49 | ULT ---
BILATERAL LOWER EXTREMITY VENOUS DOPPLER ULTRASOUND: HISTORY: Bilateral lower extremity pain and edema. TECHNIQUE: Moreno scale ultrasound with color flow and spectral Doppler imaging of the deep venous systems of the lower extremities was performed bilaterally. FINDINGS: There is good flow, compression, and augmentation noted in the common femoral, femoral, deep femoral, popliteal, posterior tibial, and greater saphenous veins on either side. IMPRESSION: No evidence of deep vein thrombosis in either lower extremity. POS: SAMIA
--- NOTE | 2018-11-29 13:29 | PRG ---
DATE OF SERVICE: 11/29/2018 SUBJECTIVE: The patient appears to be doing about the same. OBJECTIVE: VITAL SIGNS: On exam, temperature is 98, pulse 70, blood pressure 178/96, O2 saturation 100%. HEENT: Unremarkable. Trach in good position, has some secretions present. LUNGS: Clear. CARDIAC: S1, S2. Regular. ABDOMEN: Soft. EXTREMITIES: No edema. ASSESSMENT: 1. Status post aneurysmal rupture with subarachnoid hemorrhage. 2. Acute on chronic respiratory failure, requiring tracheostomy placement. PLAN: Continue supportive care with suctioning and tracheal toilet measures. Job ID: [id number]
[2018-11-29] MEDS: Sodium Chloride 256 MEQ in Sterile Water Injection 936 ML IV SCH (22:13)
[2018-11-30 05:07] LABS: #Eosinphils 0.1 thou/uL (0.0-0.7); #Monocytes 1.4 thou/uL (0.11-0.59); #Neutrophils 12.8 thou/uL (1.40-6.50); %Basophils 0.2 % (0.0-1.0); %Eosinophils 0.7 % (0.0-10.0); %Lymphocytes 6.5 % (21.0-51.0); %Monocytes 8.8 % (0.0-10.0); %Neutrophils 83.8 % (42.0-75.0); Hemoglobin 11.6 g/dL (12.0-16.0); Mean Corpuscular Hemoglobin 30.3 pg (27.0-31.0); Mean Corpuscular Volume 94.9 fL (78.0-98.0); Mean Platelet Volume 6.7 fL (7.4-10.4); Platelet Count 713 thou/uL (130-400); RBC Distribution Width 14.1 % (11.5-14.5); Red Blood Cell (RBC) Count 3.83 mill/uL (4.20-5.40); White Blood Cell (WBC) Count 15.3 thou/uL (4.8-10.8)
[2018-11-30 05:21] LABS: Anion Gap 9 mmol/L (10-20); BUN (Urea Nitrogen) 21 mg/dL (9.8-20.1); Calc. Creatinine Clearance 87 mL/min (70-130); Calcium 8.2 mg/dL (7.8-10.44); Carbon Dioxide 23 mmol/L (23-31); Chloride 110 mmol/L (98-107); Estimated GFR-MDRD Greater than 90; Glucose 120 mg/dL (80-115); Magnesium 1.9 mg/dL (1.6-2.6); Potassium 3.7 mmol/L (3.5-5.1); Sodium 138 mmol/L (136-145)
[2018-11-30] MEDS: Sodium Chloride 256 MEQ in Sterile Water Injection 936 ML IV SCH ×2 (11:07→21:38)
[2018-11-30] MEDS: Famotidine 20 MG TAB PO SCH ×2 (11:08→21:34)
--- NOTE | 2018-11-30 14:30 | PRG ---
DATE OF SERVICE: 11/30/2018 SUBJECTIVE: Ms. Camargo is about the same. She will wake up for me, which is different from yesterday. OBJECTIVE: VITAL SIGNS: On exam, temperature is 98.2, pulse 89, respirations 17, O2 saturation 100%, blood pressure 157/85. HEENT: She will open her left eye. NECK: Trach in good position. Has secretions present. LUNGS: Clear anteriorly. CARDIAC: S1, S2. Regular. ABDOMEN: Soft. EXTREMITIES: No edema. LABORATORY DATA: White blood cell count 15, hematocrit 36.4, and platelet count 713. Sodium 138, potassium 3.7, BUN 21, creatinine 0.6, glucose 120. ASSESSMENT: 1. Status post aneurysmal rupture. 2. Acute on chronic respiratory failure requiring trach placement. PLAN: Continue pulmonary toilet measures. Job ID: [id number]
[2018-12-01 05:17] LABS: #Eosinphils 0.1 thou/uL (0.0-0.7); #Monocytes 1.1 thou/uL (0.11-0.59); #Neutrophils 8.6 thou/uL (1.40-6.50); %Basophils 0.4 % (0.0-1.0); %Eosinophils 1.2 % (0.0-10.0); %Lymphocytes 9.4 % (21.0-51.0); %Monocytes 9.6 % (0.0-10.0); %Neutrophils 79.3 % (42.0-75.0); Hemoglobin 9.6 g/dL (12.0-16.0); Mean Corpuscular HGB CONC 32.3 g/dL (32.0-36.0); Mean Corpuscular Hemoglobin 31.1 pg (27.0-31.0); Mean Corpuscular Volume 96.4 fL (78.0-98.0); Mean Platelet Volume 6.6 fL (7.4-10.4); Platelet Count 600 thou/uL (130-400); RBC Distribution Width 14.2 % (11.5-14.5); Red Blood Cell (RBC) Count 3.07 mill/uL (4.20-5.40); White Blood Cell (WBC) Count 10.9 thou/uL (4.8-10.8)
[2018-12-01 05:41] LABS: Anion Gap 9 mmol/L (10-20); BUN (Urea Nitrogen) 21 mg/dL (9.8-20.1); Calc. Creatinine Clearance 85 mL/min (70-130); Carbon Dioxide 24 mmol/L (23-31); Chloride 113 mmol/L (98-107); Estimated GFR-MDRD Greater than 90; Glucose 132 mg/dL (80-115); Magnesium 1.9 mg/dL (1.6-2.6); Potassium 3.9 mmol/L (3.5-5.1); Sodium 142 mmol/L (136-145)
--- NOTE | 2018-12-01 07:54 | PRG ---
DATE OF SERVICE: 12/01/2018 SUBJECTIVE: Raman is now subarachnoid hemorrhage day 18, post clipping day 17 from a large right MCA aneurysm rupture causing intraparenchymal and subarachnoid hemorrhage. Over the weekend, there were no events reported, and ultrasound of the lower extremities was negative for DVT. I see Ms. Camargo this morning in our intermediate care unit. She is still on her tube feeds and hypertonic saline. OBJECTIVE: VITAL SIGNS: On our electronically recorded vital signs, I do not see any fever. Blood pressures have been 130s to 160s and other vital signs are stable. NEUROLOGIC: On examination, Ms. Camargo is much as she was Saturday. She eventually opens her left eye spontaneously if we wait long enough. She will occasionally follow some commands on the right side. She is hemiparetic on the left with withdrawal on that side in the upper and lower extremities. The scalp was well-approximated, its full with fluid beneath it. LABORATORY DATA: Sodium is 142. The white blood cell count is 10.9. ASSESSMENT AND PLAN: Ms. Camargo is making progress in her laboratory values. Her neurological examination is much better than it was before surgery, and is stable from last week. We will get a CT scan of the brain this week. We will think about removing wilfrid later in the week, and we will start looking for placement. I think she can move slowly out of the intermediate care unit to regular floor. We will start weaning her hypertonic saline starting tomorrow. Tomorrow morning, we will cut it down to 60 mL an hour and on Saturday to 30 mL an hour, and then, we will hold it on , which would be 3 weeks after her hemorrhage. Hopefully, she can be transitioned to bolus feeds only so that the placement will be easier for her. Physical, Occupational, and Speech Therapy should begin. Job ID: [id number]
[2018-12-01] MEDS: Scopolamine 1.5 mg/72 hour Patch TD SCH (09:07)
[2018-12-01] MEDS: Famotidine 20 MG TAB PO SCH ×2 (09:08→21:31)
--- NOTE | 2018-12-01 09:28 | PRG ---
DATE OF SERVICE: 12/01/2018 SUBJECTIVE: Colleen Camargo this morning, remains off the vent. Trach in place. Status post aneurysmal rupture with left-sided paralysis. OBJECTIVE: VITAL SIGNS: Blood pressure is 153/108, respirations 24, saturations 98%, temperature 98, pulse 106. CHEST: Decreased breath sounds. No wheezing. CARDIAC: Normal S1 and S2. ABDOMEN: Negative mass. LABORATORY DATA: White count is unremarkable. Sodium is 142. IMPRESSION: 1. Status post aneurysm bleed with left-sided paralysis. 2. Hypertension. PLAN: 1. Awaiting placement. She is on Keppra IV. We could probably switch her over to p.o. medication via the PEG. She is on IV fluids 1.5 as per Neurosurgery. 2. Hypertonic. Once they wean her off the IV fluids etc, she will be transferred out of the MICU. 3. Pulmonary Critical Care will follow while in the MICU. Job ID: [id number]
[2018-12-01] MEDS: levETIRAcetam 500 MG TAB PO SCH ×2 (09:47→21:31)
--- NOTE | 2018-12-01 12:40 | PQF ---
FIDEL DIMAS, SOLOMON G [id number] [facility]-A07 [id number] CLINICAL DOCUMENTATION IMPROVEMENT CLARIFICATION FORM: ICD-10 Updated PLEASE DO AN ADDENDUM TO THE PROGRESS NOTE WITH ANY DOCUMENTATION UPDATES OR ADDITIONS AND CARRY THROUGH TO DC SUMMARY. THANK YOU. DATE: 12-01-18 ATTN: DR. CURTIS Please exercise your independent, professional judgment in responding to the clarification form. Clinical indicators are provided on the bottom of this form for your review Please check appropriate box(s): [ ] Aspiration Pneumonia [ ] Simple Pneumonia (community acquired - nosocomial) [ ] Pneumonia of unknown etiology [ ] Other diagnosis [ ] Unable to determine In addition, please specify: Present on Admission (POA): [ ] Yes [ ] No [ ] Unable to determine For continuity of documentation, please document condition throughout progress notes and discharge summary. Thank You. CLINICAL INDICATORS - SIGNS / SYMPTOMS / LABS ED: TEMP 95.9 (CRITICORE TEMP) LABS 1-10 WBC 14.4 - BANDS 25 1- (CURTIS) LEFT-SIDED PNA - EMPIRIC ANTIBIOTICS WERE INITIATED - SHE IS GOING TO REQUIRE TRACH AND PEG FOR LONG-TERM CARE - WBC 10,000 1-18 (CURTIS) LEFT-SIDED PNA, PROBABLY ASPIRATION RISK FACTORS 1-10 OP NOTE (TIARRA): * ANEURYSMAL SUBARACHNOID HEMORRHAGE AND ANEURYSMAL PARENCHYMAL HEMORRHAGE OF RUPTURED RIGHT MCA ANEURYSM * DECOMPRESSIVE CRANIECTOMY ; MICROSURGICAL CLIPPING RIGHT MCA ANEURYSM; EVACUATION OF PARENCHYMAL HEMATOMA - (CURTIS) RESPIRATORY FAILURE ON VENT 11-14 @ 0225 OFF VENT 1-16 @ 0657 TREATMENTS: MAR: ROCEPHIN IV -13 TO 11-25 LEVAQUIN IV -17 TO - IV fluids CPOE: ON VENT 11-14 @ 0225 OFF VENT 1-16 @ 0657 1- Pulmonary consult Serial CXRs THANK YOU, JIE (This form is maintained as a part of the permanent medical record) 2014 [employer]. All Rights Reserved Jie Lindsay RN, BS [email or web address] [employer] [facility]
--- NOTE | 2018-12-01 12:53 | PQF ---
FIDEL DIMAS L GERARD MD [id number] U-A07 [id number] This note is generated to asnwer our billing and coding specialists. Although the question posed to me is ambiguous, I will add more verbage to the chart, not for any patient care or inter-team communication, but simply for coding purposes. Briefly, this patient was admitted from the ED with a ruptured R MCA aneurysm resulting in intracerebal hemorrhage and subarachnoid hemorrhage. The mass effect from the parenchymal hemorrhage resulted in a deteriorating examination in the emergency department. Vasogenic and cytotoxic edema from the hemorrhage would not have had time to occur in the emergency department. We took the patient to the operating room overnight for aneurysm clipping to prevent more hemorrhage, and a decompressive craniectomy to allow for swelling / mass effect of the existing clot without a concomitant neurological deterioration. As the last 18 days has demonstrated, this decision allowed for neurological improvement and prevented almost certain demise. We are on the way towards a recovery currently, but remain vigilant for any subarachnoid hemorrahge-associated complications. KWAN
--- NOTE | 2018-12-01 14:30 | PQF ---
FIDEL DIMAS, SOLOMON G [id number] U-A07 [id number] CLINICAL DOCUMENTATION IMPROVEMENT CLARIFICATION FORM: ICD-10 Updated PLEASE DO AN ADDENDUM TO THE PROGRESS NOTE WITH ANY DOCUMENTATION UPDATES OR ADDITIONS AND CARRY THROUGH TO DC SUMMARY. THANK YOU. DATE: 12-01-18 ATTN: DR. CURTIS Please exercise your independent, professional judgment in responding to the clarification form. Clinical indicators are provided on the bottom of this form for your review Please check appropriate box(s): [ ] Acute Metabolic Encephalopathy [ ] Acute Hypertensive Encephalopathy [ ] Other diagnosis [ ] Unable to determine In addition, please specify: Present on Admission (POA): [ ] Yes [ ] No [ ] Unable to determine For continuity of documentation, please document condition throughout progress notes and discharge summary. Thank You. CLINICAL INDICATORS - SIGNS / SYMPTOMS / LABS ED: BP 186/112; 157/98; 183/101; 168/108; 130/96; 221/133; 179/105 TEMP: 95.7 CRITICORE TEMP [facility]CS: (4) WITHDRAWS TO PAIN; (2) INCOMPREHENSIBLE SPEECH (3) EYE OPENING INRESPONSE TO ANY SPEECH = 9 LABS 1-10 WBC 14.4 1-11 BANDS 25 -17 (EVER) STILL ENCEPHALOPATHIC RISK FACTORS 1-11 (TIARRA) S/P RIGHT-SIDED MASSIVE INTRACEREBRAL HEMORRHAGE SECONDARY TO RUPTURED ANEURYSM; RESP FAILURE 1-[address]: INTRACRANIAL HEMORRHAGE - MIDLINE SHIFT APPEARS TO HAVE INCREASED ED: RUPTURED RIGHT MCA ANEURYSM; HYPERTENSIVE EMERGENCY TREATMENTS: 1-10 IV Mannitol (1 to 1.5 g/kg) 1-10 OP NOTE (TIARRA): DECOMPRESSIVE CRANIECTOMY IN THE RIGHT FRONTOTEMPOROPARIETAL SKULL, MICROSURGICAL CLIPPING OF RIGHT MCA ANEURYSM, EVACUATION OF PARENCHYMAL HEMATOMA. MAR: ROCEPHIN IV 1-13 TO 11-25 LEVAQUIN IV -17 TO - IV fluids CPOE: Serial CT Neuro Checks Neurology / Neurosurgeon consult Mechanical Ventilator ON 11-14 @ 0225 OFF 11-19 @ 0657 THANK YOU, JIE (This form is maintained as a part of the permanent medical record) 2014 [employer]. All Rights Reserved Jie Lindsay RN, BS [email or web address]
[2018-12-01] MEDS: Labetalol HCl 100 MG/20 ML VIAL SLOW IVP PRN (21:32)
--- NOTE | 2018-12-01 22:27 | CON ---
DATE OF CONSULTATION: 12/01/2018 CHIEF COMPLAINT/HISTORY OF PRESENT ILLNESS: The patient on November 13, had an unprovoked seizure-like episode, for which an EMS was called and on arrival, EMS found the patient to be weak on the left side and in high blood pressures requiring Levophed and the patient was air-flighted to the ER for acute stroke. CT over here revealed a ruptured right MCA aneurysm with associated parenchymal hematoma. Extensive subarachnoid hemorrhage. CT angiography of the neck was within normal limits except 6 mm saccular right MCA trifurcation aneurysm with relatively broad neck. The patient was subsequently taken to the OR for right craniectomy, clipping of the right aneurysm, evacuation of this right subarachnoid hemorrhage. The patient since then has continued left-sided weakness with no spontaneous movement, non-arousable, and on trach collar with a vent. We were consulted for medical management. At this point of time, the patient's lab values are not significantly abnormal. Her WBC is 10.9, hemoglobin is 9.6. Sodium 142, potassium 3.9, and creatinine 0.62. PAST MEDICAL HISTORY: Also significant for aneurysm, hypertension. PAST SURGICAL HISTORY: No significant past surgical history. ALLERGIES: NO KNOWN ALLERGIES. REVIEW OF SYSTEMS: Not obtainable as the patient is not arousable. PHYSICAL EXAMINATION: VITAL SIGNS: Stable, the patient is on trach collar and supplemental oxygen, non-arousable. HEENT: Large right craniotomy sutures are healing well, Caren Plus. Bilateral ears and external canal are within normal limits. Eyelids and conjunctivae are within normal limits. Pupils are round and reactive to light. Trach collar present, no cervical lymphadenopathy. RESPIRATORY: The patient is on trach collar. No respiratory distress noted. Good air entry into both the lung camargo, no wheezes and no rhonchi. CARDIOVASCULAR: Regular rate and rhythm. No murmurs. ABDOMEN: Soft, NT, ND. No organomegaly. No guarding. No masses. NEUROLOGICAL: The patient is not arousable. Spontaneously moves the right arm, not noticed any movement on the left upper and lower extremities. MUSCULOSKELETAL: No swelling noted. Mild pedal edema bilaterally. PSYCH: Unable to assess. SKIN: Looks intact. No rashes or wounds. ASSESSMENT AND PLAN: 1. Continue present care. 2. Continue respiratory support with a trach collar and supplemental oxygen, not on vent anymore. 3. Hypernatremia, resolving with IV fluids slowly reduce the IV fluids and stop the IV fluids on Saturday, and the patient to be IV fluids free by . 4. Plans for LTAC transfer. 5. Dobhoff feeds/PEG feeds plans for the bolus feeds. 6. Continue current management, guarded prognosis. Job ID: [id number]
[2018-12-01] MEDS: Sodium Chloride 256 MEQ in Sterile Water Injection 936 ML IV SCH (23:32)
[2018-12-02] MEDS: Labetalol HCl 100 MG/20 ML VIAL SLOW IVP PRN (03:30)
[2018-12-02 04:52] LABS: #Eosinphils 0.1 thou/uL (0.0-0.7); #Lymphocytes 1.3 thou/uL (1.20-3.40); #Monocytes 0.8 thou/uL (0.11-0.59); #Neutrophils 7.2 thou/uL (1.40-6.50); %Basophils 0.2 % (0.0-1.0); %Eosinophils 1.4 % (0.0-10.0); %Lymphocytes 13.3 % (21.0-51.0); %Monocytes 8.7 % (0.0-10.0); %Neutrophils 76.4 % (42.0-75.0); Hemoglobin 11.3 g/dL (12.0-16.0); Mean Corpuscular HGB CONC 31.8 g/dL (32.0-36.0); Mean Corpuscular Hemoglobin 30.2 pg (27.0-31.0); Mean Corpuscular Volume 95.1 fL (78.0-98.0); Mean Platelet Volume 6.4 fL (7.4-10.4); Platelet Count 664 thou/uL (130-400); RBC Distribution Width 14.2 % (11.5-14.5); Red Blood Cell (RBC) Count 3.74 mill/uL (4.20-5.40); White Blood Cell (WBC) Count 9.4 thou/uL (4.8-10.8)
[2018-12-02 05:12] LABS: Anion Gap 13 mmol/L (10-20); BUN (Urea Nitrogen) 16 mg/dL (9.8-20.1); Calc. Creatinine Clearance 87 mL/min (70-130); Calcium 8.3 mg/dL (7.8-10.44); Carbon Dioxide 23 mmol/L (23-31); Chloride 111 mmol/L (98-107); Estimated GFR-MDRD Greater than 90; Glucose 109 mg/dL (80-115); Potassium 3.6 mmol/L (3.5-5.1); Sodium 143 mmol/L (136-145)
[2018-12-02] MEDS: hydrALAZINE 20 MG/ML VIAL SLOW IVP PRN (05:34)
--- NOTE | 2018-12-02 07:03 | PRG ---
DATE OF SERVICE: 12/02/2018 NEUROSURGERY PROGRESS NOTE Ms. Camargo is now subarachnoid hemorrhage day 19, post clipping day 18 from right MCA aneurysm rupture with intraparenchymal and subarachnoid hemorrhage. No events have been reported overnight. Notes a fever recorded on the electronic vital signs. Blood pressures have been as high as 180s. Neurological examination; Ms. Camargo opens the left eye spontaneously. This morning, she is very purposeful with the right side and occasionally follows commands. She flexes the stimulus on the left side. Incision is well-approximated. The fullness in her craniectomy flap is less now than it was previously. I think the mass effect from the intraparenchymal hemorrhage is going down. Sodium this morning is 143. White count is 9.4. We will continue to wean Ms. Camargo off 1.5 normal saline. Her feeds should eventually be transitioned to boluses that she can replace in LTAC or usp. She can move to a MEDIchair at any time. It has been hours there during the day if she trapped in and I think the movement would do her well. When she is out of bed, she needs a helmet for brain protection. We will get a CAT scan today to assess her ventricle. Her ventricular system looking for any hydrocephalus and assess the state of the intraparenchymal hemorrhage. Job ID: [id number]
[2018-12-02] MEDS: Famotidine 20 MG TAB PO SCH ×2 (08:28→20:15)
[2018-12-02] MEDS: levETIRAcetam 500 MG TAB PO SCH ×2 (08:28→20:15)
--- NOTE | 2018-12-02 09:47 | PRG ---
DATE OF SERVICE: 12/02/2018 OBJECTIVE: VITAL SIGNS: This morning, her saturations are 100% on 28% FiO2, respiratory rate 25, temperature 97, pulse 73, blood pressure 143/80. CHEST: Anterior rhonchi. CARDIAC: Normal S1 and S2. No gallops. ABDOMEN: No masses. LABORATORY DATA: Sodium 143. Lytes are normal. IMPRESSION: 1. Intracerebral hemorrhage. 2. Hypertension. 3. Continue hypertonic saline as per Neurosurgery. PLAN: 1. Eventually placement. 2. Continue supportive care, PT, and nutrition. Job ID: [id number]
--- NOTE | 2018-12-02 12:49 | CT ---
CT BRAIN NONCONTRAST: DATE: 12-02-18 TIME: 10:36 A.M. HISTORY: 68-year-old female, follow up intracranial hemorrhage after intracranial aneurysm rupture. Status pos t aneurysm clipping. COMPARISON: 11-15-18 FINDINGS: The large intraaxial right cerebral hematoma was previously 7 x 6.2 cm. It currently measures approxi mately 7.2 x 5.9 cm, and has become lower in density, especially at the periphery. There is a greater degree of hypodensity in the brain parenchyma circumferentiallysurrounding this, representing edema and/or breakdown of the blood products. Previously, just deep to the large synthetic flap covering the right sided craniectomy defect, there was a 4 x 1 cm extraaxial hematoma. Now, the extraaxial fluid collection between the flap and the lat eral aspect of the right cerebral hemisphere is no longer hyperdense. It is predominately of low to i ntermediate attenuation (subacute blood) except for the most inferior portion, which is slightly hype rdense. The large right cerebral hematoma continues to cause significant mass effect, but this has improved. The right lateral ventricle continues to be almost completely effaced. There is slight interval impro vement in the mild dilation of the left frontal horn, left temporal horn and trigone. There has been interval decrease in the amount of blood in the left occipital horn, now tiny. The right to left midl ine shift that was previously 2.4 cm has decreased to 1.4 cm. The previously severe distortion and ex trinsic compression of the midbrain, with bilateral uncal herniation, has improved. There is now bett er visualization of the ambient cistern, due to improvement in the mass effect and interval clearance of the subarachnoid blood. There is no longer distortion of the malena. The previously demonstrated do wnward herniation into the posterior fossa is no longer apparent. Aneurysm clips in the regions of the middle cerebral arteries bilaterally are again noted. The pneumo cephalus has resolved. Again noted is the moderately large, confluent region of low attenuation, consistent with left middle cerebral artery infarction, involving the left frontal lobe from inferior to superior aspects of the brain, and also involving anterolateral portion of left temporal lobe. The previously demonstrated left frontal subdural fluid collection, which is of low density (almost l ow as CSF density) has become larger. For example, at the anterior aspect of the left anterior crania l fossa, the thickness of this subdural fluid collection is approximately 0.9. This is contiguous wit h the fluid collection extending to involve the left parasagittal convexity, where the transverse thi ckness is up to 1 cm. There is no new hemorrhage. IMPRESSION: 1. The very large right cerebral intraaxial hematoma has become less dense than previously. 2. It still exerts significant mass effect, but this has improved. 3. The small extraaxial hematoma that was acute on the previous CT, located between the right cerebru m and right craniectomy synthetic flap, has become less dense and slightly smaller. 4. Interval increase in volume of left supratentorial subdural hygroma, with component at the left pa rasagittal convexity communicating with component at left anterior cranial fossa. 5. 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 MAKAYLA Jacobson POS: [facility]
--- NOTE | 2018-12-02 15:12 | PDOC.PN ---
- Subjective Encounter Start Date: 12/02/18 Encounter Start Time: 15:10 Subjective: sitting up in neuro chair but non responsive.breathing spontaneously -: RN reports no improvement in mental status -: left hemiparesis persists - Objective MAR Reviewed: Yes Vital Signs & Weight: Vital Signs (12 hours) Temp Pulse Pulse Resp BP BP BP 12/02/18 15:07 99.8 F H 95 24 H 127/68 12/02/18 12:08 101 H 139/84 12/02/18 11:07 89 25 H 143/82 H 12/02/18 07:40 97.2 F L 73 25 H 143/80 H 12/02/18 05:34 69 174/110 H 12/02/18 04:00 98.5 F 80 20 172/90 H 12/02/18 03:30 87 182/104 H Pulse Ox 12/02/18 15:07 100 12/02/18 12:08 12/02/18 11:07 99 12/02/18 07:40 100 12/02/18 05:34 12/02/18 04:00 100 12/02/18 03:30 Weight Admit Weight 102 lb 8.239 oz Weight 134 lb 4.8 oz Most Recent Monitor Data Heart Rate from ECG 77 NIBP 160/77 NIBP BP-Mean 104 Respiration from ECG 22 SpO2 94 I&O: 12/01/18 12/02/18 12/03/18 06:59 06:59 06:59 Intake Total 3815 4702 534 Output Total 2125 3200 Balance 1690 1502 534 Result Diagrams: 12/02/18 04:44 12/02/18 04:44 Additional Labs: Accuchecks 12/02/18 12/01/18 09:12 21:07 POC Glucose 154 H 82 Microbiology 11/25/18 17:03 Venous blood - Left Foot Blood Culture - Final NO GROWTH IN 5 DAYS 11/25/18 16:54 Venous blood - Right Hand Blood Culture - Final NO GROWTH IN 5 DAYS 11/24/18 Unknown Urine contreras catheter Urine Culture - Final NO GROWTH AT 48 HOURS 11/19/18 19:57 Venous blood - Right Hand Blood Culture - Final NO GROWTH IN 5 DAYS 11/19/18 19:56 Venous blood - Right Hand Blood Culture - Final NO GROWTH IN 5 DAYS 11/19/18 18:55 Sputum Respiratory Culture - Final Laboratory Tests 11/28/18 11/29/18 12/01/18 04:32 05:15 05:06 WBC 16.9 H 12.3 H 10.9 H 12/02/18 04:44 WBC 9.4 Phys Exam - Physical Examination Constitutional: NAD no response to verbal and light tactile stimulus HEENT: PERRLA, moist MMs, sclera anicteric, oral pharynx no lesions Neck: no nodes, no JVD, supple, full ROM Respiratory: no wheezing, no rales, no rhonchi, clear to auscultation bilateral Cardiovascular: RRR, no significant murmur Gastrointestinal: soft, non-tender, no distention, positive bowel sounds Musculoskeletal: no edema, pulses present can not be completed due to non responsiveness Skin: no rash Dx/Plan (1) SAH (subarachnoid hemorrhage) Code(s): I60.9 - NONTRAUMATIC SUBARACHNOID HEMORRHAGE, UNSPECIFIED Status: Acute (2) Cerebral aneurysm Status: Acute Comment: s/p clipping R MCA aneursym,craniectomy and hematoma evacuation 11/13/18 (3) Uncontrolled hypertension Code(s): I10 - ESSENTIAL (PRIMARY) HYPERTENSION Status: Acute (4) Unresponsiveness Status: Acute - Plan DVT proph w/SCDs off of nicardipine drip.add PO meds -: cont TF boluses.Trach collar and maiatianing respiration -: placement -: HD stable. -: rehab/LTAC * . Review of Systems - Review of Systems Other: can not be obtained due to AMS from [facility] - Medications/Allergies Allergies/Adverse Reactions: Allergies Allergy/AdvReac Type Severity Reaction Status Date / Time No Known Allergies Allergy Unverified 11/13/18 18:55 Medications: Current Medications Acetaminophen (Tylenol Elixir) 650 mg PO Q4H PRN PRN Reason: Headache/Fever/Mild Pain (1-3) Last Admin: 11/21/18 21:23 Dose: 650 mg Al Hydroxide/Mg Hydroxide (Maalox) 30 ml PO Q6H PRN PRN Reason: Indigestion Diphenhydramine HCl (Benadryl) 50 mg PO Q6H PRN PRN Reason: Itching or Insomnia Diphenhydramine HCl (Benadryl) 50 mg IVP Q6H PRN PRN Reason: Itching or Insomnia Docusate Sodium (Colace) 100 mg PO BIDPRN PRN PRN Reason: Constipation Famotidine (Pepcid) 20 mg PO Q12HR [facility] Last Admin: 12/02/18 08:28 Dose: 20 mg Hydralazine HCl (Apresoline) 5 mg SLOW IVP Q15M PRN PRN Reason: TO KEEP SBP </=160 Last Admin: 12/02/18 05:34 Dose: 5 mg Nicardipine HCl 25 mg/ Sodium (Chloride) 260 mls @ 2.626 mls/hr IVPB INF [facility] Last Admin: 11/14/18 07:17 Dose: 260 mls Potassium Chloride 40 meq/ (Sodium Chloride) 270 mls @ 135 mls/hr IVPB ASDIR PRN PRN Reason: FOR SERUM K+ 2.5 - 3.5 Potassium Chloride 40 meq/ (Device) 100 mls @ 50 mls/hr IVPB ASDIR PRN PRN Reason: FOR SERUM K+ 2.5 - 3.5 Magnesium Sulfate 1 gm/ Sodium (Chloride) 102 mls @ 102 mls/hr IV PRN PRN PRN Reason: MAG LEVEL 1.4 - 2.0 Magnesium Sulfate 2 gm/ Device 100 mls @ 100 mls/hr IVPB ASDIR PRN PRN Reason: MAGNESIUM < 1.4 Potassium Phosphate 9 mmol/ (Sodium Chloride) 103 mls @ 25.75 mls/hr IVPB ASDIR PRN PRN Reason: Phosphate 1.0-1.8 Potassium Phosphate 12 mmol/ (Sodium Chloride) 254 mls @ 63.5 mls/hr IV ASDIR PRN PRN Reason: Serum phosphate 0.5-0.9 Potassium Phosphate 15 mmol/ (Sodium Chloride) 255 mls @ 63.75 mls/hr IV ASDIR PRN PRN Reason: Serum Phos < 0.5 Sodium Chloride 256 meq/ (Sterile Water) 1,000 mls @ 100 mls/hr IV INF [facility] Last Admin: 12/01/18 23:32 Dose: 1,000 mls Labetalol HCl (Normodyne) 10 mg SLOW IVP Q15M PRN PRN Reason: TO KEEP SBP </=160 Last Admin: 12/02/18 03:30 Dose: 10 mg Levetiracetam (Keppra) 500 mg PO BID [facility] Last Admin: 12/02/18 08:28 Dose: 500 mg Levofloxacin (Levaquin) 500 mg PO 0600 [facility] Last Admin: 12/02/18 05:42 Dose: 500 mg Magnesium Hydroxide (Milk Of Magnesium) 30 ml PO BIDPRN PRN PRN Reason: Constipation Last Admin: 11/20/18 18:40 Dose: 30 ml Magnesium Oxide (Magnesium Oxide) 400 mg PO BIDPRN PRN PRN Reason: FOR SERUM MAG 1.4 - 2.0 Magnesium Oxide (Magnesium Oxide) 800 mg PO PRN PRN PRN Reason: FOR SERUM MAG < 1.4 Miscellaneous Medication (Phos-Nak) 1 pkt PO TIDPRN PRN PRN Reason: FOR PHOS LEVEL 1.0 - 1.8 Miscellaneous Medication (Phos-Nak) 2 pkt PO TIDPRN PRN PRN Reason: FOR PHOS LEVEL 0.5 - 1.0 Ccu Electrolyte (Replacement Protocol) 0 each FS PRN PRN PRN Reason: FOR ELECTROLYTE REPLACEMENT Ondansetron HCl (Zofran) 4 mg IVP Q6H PRN PRN Reason: Nausea/Vomiting Potassium Chloride (K-Dur) 40 meq PO ASDIR PRN PRN Reason: FOR SERUM K+ 2.5 - 3.5 Potassium Chloride (Klor-Con) 40 meq PER TUBE ASDIR PRN PRN Reason: FOR SERUM K+ 2.5-3.5 Last Admin: 11/28/18 12:37 Dose: 40 meq Promethazine HCl (Phenergan) 25 mg PO Q4H PRN PRN Reason: Nausea/Vomiting Promethazine HCl (Phenergan) 25 mg IM Q4H PRN PRN Reason: Nausea/Vomiting Scopolamine (Transderm Scop) 1.5 mg TD Q3D [facility] Last Admin: 12/01/18 09:07 Dose: 1.5 mg Sodium Chloride (Flush - Normal Saline) 10 ml IVF Q12HR [facility] Last Admin: 12/02/18 10:15 Dose: 10 ml Sodium Chloride (Flush - Normal Saline) 10 ml IVF PRN PRN PRN Reason: Saline Flush Last Admin: 11/26/18 06:37 Dose: 10 ml
[2018-12-02] MEDS ORDERED: NIFEdipine XL 30 MG TAB PO SCH (15:45)
[2018-12-02] MEDS: Sodium Chloride 256 MEQ in Sterile Water Injection 936 ML IV SCH (22:15)
[2018-12-03 04:40] LABS: #Basophils 0.1 thou/uL (0.0-0.2); #Eosinphils 0.1 thou/uL (0.0-0.7); #Lymphocytes 1.6 thou/uL (1.20-3.40); #Neutrophils 7.8 thou/uL (1.40-6.50); %Basophils 0.7 % (0.0-1.0); %Eosinophils 1.2 % (0.0-10.0); %Lymphocytes 14.7 % (21.0-51.0); %Monocytes 9.8 % (0.0-10.0); %Neutrophils 73.7 % (42.0-75.0); Mean Corpuscular HGB CONC 31.6 g/dL (32.0-36.0); Mean Corpuscular Hemoglobin 30.3 pg (27.0-31.0); Mean Corpuscular Volume 95.9 fL (78.0-98.0); Mean Platelet Volume 6.4 fL (7.4-10.4); Platelet Count 638 thou/uL (130-400); RBC Distribution Width 14.4 % (11.5-14.5); Red Blood Cell (RBC) Count 3.63 mill/uL (4.20-5.40); White Blood Cell (WBC) Count 10.6 thou/uL (4.8-10.8)
[2018-12-03] MEDS: hydrALAZINE 20 MG/ML VIAL SLOW IVP PRN (04:41)
--- NOTE | 2018-12-03 08:01 | PRG ---
DATE OF SERVICE: 12/03/2018 NEUROSURGERY PROGRESS NOTE I saw Colleen camargo on hospital rounds this morning. She remains in the intermediate care unit. We are weaning off for 1.5 normal saline. No events were reported overnight. Her is at bedside today and comments that she has improved this week even more than she had last week. Overnight, the recorded vitals reveal any fevers. Blood pressures are down yesterday compared to the day before. They have been running in the 120s to 160s. On neurological examination, Ms. Camargo opens her eyes to stimulus and to voice. She follows commands on the right side. I wave to her and she waves back. She is not yet attempting to speak. There is still a dense hemiparesis on the left side. There was no tension on her incision anymore. I think we can get half the wilfrid out today and half tomorrow. Her white blood cell count is 10.1. We did check the sodium this morning, but we will do so tomorrow. Plan today is remove half the wilfrid and remove the other half tomorrow. We will stop the 1.5 normal saline tomorrow. We can stop the nimodipine for blood pressure control. We can start to think about chronic beta-blockers perhaps metoprolol 25 b.i.d. or 50 b.i.d. based on the medical team advice. We will look at placement to happen any time. She is now on bolus feeds and she should be off her IV support soon. She still needs some mild pulmonary toilet and suctioning from [id number]. Job ID: [id number]
[2018-12-03] MEDS: NIFEdipine XL 30 MG TAB PO SCH (08:15)
[2018-12-03] MEDS: Famotidine 20 MG TAB PO SCH ×2 (08:56→20:39)
[2018-12-03] MEDS: levETIRAcetam 500 MG TAB PO SCH ×2 (08:56→20:39)
[2018-12-03] MEDS: Amlodipine 5 MG TAB PO SCH (08:56)
--- NOTE | 2018-12-03 08:57 | PRG ---
DATE OF SERVICE: 12/03/2018 SUBJECTIVE: This morning, the patient is awake, alert, responsive, just does not move the left side. OBJECTIVE: VITAL SIGNS: Temperature is 97, pulse of 101, respiratory rate 26, sats 100%, and blood pressure 133/80. CHEST: Decreased breath sounds. No wheezing. CARDIAC: Normal S1 and S2. No gallops. ABDOMEN: No masses. LABORATORY STUDIES: Lytes are normal. Sodium of 143. White count unremarkable. IMPRESSION: 1. Status post intracerebral hemorrhage secondary to ruptured aneurysm, status post craniotomy, status post aneurysm clipping. 2. Respiratory failure. 3. Cerebrovascular accident, trach and PEG in placement. PLAN: Probably can discontinue the antibiotics. Job ID: [id number]
--- NOTE | 2018-12-03 08:59 | PQF ---
FIDEL DIMAS DR. [id number] U-A07 [id number] CLINICAL DOCUMENTATION IMPROVEMENT CLARIFICATION FORM: ICD-10 Updated PLEASE DO AN ADDENDUM TO THE PROGRESS NOTE WITH ANY DOCUMENTATION UPDATES OR ADDITIONS AND CARRY THROUGH TO DC SUMMARY. THANK YOU. DATE: 12-03-18 ATTN: DR. GAR Please exercise your independent, professional judgment in responding to the clarification form. Clinical indicators are provided on the bottom of this form for your review Please check appropriate box(s): [ ] Acute Metabolic Encephalopathy [ ] Acute Hypertensive Encephalopathy [ X ] Other diagnosis [ ] Unable to determine In addition, please specify: Present on Admission (POA): [ X ] Yes [ ] No [ ] Unable to determine For continuity of documentation, please document condition throughout progress notes and discharge summary. Thank You. CLINICAL INDICATORS - SIGNS / SYMPTOMS / LABS ED: BP 186/112; 157/98; 183/101; 168/108; 130/96; 221/133; 179/105 TEMP: 95.7 CRITICORE TEMP [facility]: (4) WITHDRAWS TO PAIN; (2) INCOMPREHENSIBLE SPEECH (3) EYE OPENING IN RESPONSE TO ANY SPEECH = 9 LABS 1-10 WBC 14.4 1-11 BANDS 25 - (EVER) STILL ENCEPHALOPATHIC 12-02 (CONG): RN REPORTS NO IMPROVEMENT IN MENTAL STATUS - UNRESPONSIVENESS RISK FACTORS - (TIARRA) S/P RIGHT-SIDED MASSIVE INTRACEREBRAL HEMORRHAGE SECONDARY TO RUPTURED ANEURYSM; RESP FAILURE - BRAIN CT: INTRACRANIAL HEMORRHAGE - MIDLINE SHIFT APPEARS TO HAVE INCREASED ED: RUPTURED RIGHT MCA ANEURYSM; HYPERTENSIVE EMERGENCY TREATMENTS: 1-10 IV Mannitol (1 to 1.5 g/kg) -10 OP NOTE (TIARRA): DECOMPRESSIVE CRANIECTOMY IN THE RIGHT FRONTOTEMPOROPARIETAL SKULL, MICROSURGICAL CLIPPING OF RIGHT MCA ANEURYSM, EVACUATION OF PARENCHYMAL HEMATOMA. MAR: ROCEPHIN IV - TO 11-25 LEVAQUIN IV 11-20 TO 11-25 IV fluids CPOE: Serial CT Neuro Checks Neurology / Neurosurgeon consult Mechanical Ventilator ON 11-14 @ 0225 OFF 11-19 @ 0657 THANK YOU, JIE (This form is maintained as a part of the permanent medical record) 2015 [employer]. All Rights Reserved Jie Lindsay RN, BS [email or web address] Cell [facility]
--- NOTE | 2018-12-03 09:03 | PQF ---
FIDEL DIMAS, SOLOMON G [id number] [facility]-A07 [id number] CLINICAL DOCUMENTATION IMPROVEMENT CLARIFICATION FORM: ICD-10 Updated PLEASE DO AN ADDENDUM TO THE PROGRESS NOTE WITH ANY DOCUMENTATION UPDATES OR ADDITIONS AND CARRY THROUGH TO DC SUMMARY. THANK YOU. DATE: 12-01-18 ATTN: DR. CURTIS Please exercise your independent, professional judgment in responding to the clarification form. Clinical indicators are provided on the bottom of this form for your review Please check appropriate box(s): [ ] Aspiration Pneumonia [ ] Simple Pneumonia (community acquired - nosocomial) [ ] Pneumonia of unknown etiology [ ] Other diagnosis [ ] Unable to determine In addition, please specify: Present on Admission (POA): [ ] Yes [ ] No [ ] Unable to determine For continuity of documentation, please document condition throughout progress notes and discharge summary. Thank You. CLINICAL INDICATORS - SIGNS / SYMPTOMS / LABS ED: TEMP 95.9 (CRITICORE TEMP) LABS 1-10 WBC 14.4 - BANDS 25 1- (CURTIS) LEFT-SIDED PNA - EMPIRIC ANTIBIOTICS WERE INITIATED - SHE IS GOING TO REQUIRE TRACH AND PEG FOR LONG-TERM CARE - WBC 10,000 1-18 (CURTIS) LEFT-SIDED PNA, PROBABLY ASPIRATION RISK FACTORS 1-10 OP NOTE (TIARRA): * ANEURYSMAL SUBARACHNOID HEMORRHAGE AND ANEURYSMAL PARENCHYMAL HEMORRHAGE OF RUPTURED RIGHT MCA ANEURYSM * DECOMPRESSIVE CRANIECTOMY ; MICROSURGICAL CLIPPING RIGHT MCA ANEURYSM; EVACUATION OF PARENCHYMAL HEMATOMA - (CURTIS) RESPIRATORY FAILURE ON VENT 11-14 @ 0225 OFF VENT 1-16 @ 0657 TREATMENTS: MAR: ROCEPHIN IV -13 TO 11-25 LEVAQUIN IV -17 TO - IV fluids CPOE: ON VENT 11-14 @ 0225 OFF VENT 1-16 @ 0657 1- Pulmonary consult Serial CXRs THAN JIE DE SANTIAGO (This form is maintained as a part of the permanent medical record) 2014 [employer]. All Rights Reserved Jie Lindsay RN, BS [email or web address] [facility]
--- NOTE | 2018-12-03 09:20 | RAD ---
PORTABLE CHEST 1 VIEW: DATE: 12/03/2018. TIME: 8:47 a.m. HISTORY: Respiratory failure, pleural effusions. FINDINGS: Comparison is made with the exam of 11/26/2018. The heart size is stable. Bilateral pleural effusions and adjacent opacities are again seen. Trache ostomy tube remains in place. No pneumothoraces are identified. IMPRESSION: Stable exam. POS: OFF
--- NOTE | 2018-12-03 10:29 | PRG ---
DATE OF SERVICE: 12/03/2018 ADDENDUM: Chest x-ray taken shows still bilateral pleural effusion only. X-ray on 11/19/2018 showed a left-sided retrocardiac infiltrate pneumonia, probably aspiration. X-ray today now shows bilateral pleural effusion consistent with fluid overload from her hypertonic saline 1.5 that she is getting. The nurses tell me she is otherwise relatively asymptomatic. We are hoping that she will be weaned off the hypertonic saline. She should be able to diurese on her own. IMPRESSION: 1. Bilateral pleural effusion, probably from hypertonic saline, normal ejection fraction. 2. Aspiration pneumonia, left chest, resolved. Discontinue antibiotics. Job ID: [id number]
--- NOTE | 2018-12-03 11:57 | PDOC.PN ---
- Subjective Encounter Start Date: 12/03/18 Encounter Start Time: 11:55 Subjective: wakes up and responds to at bedside -: opens R eye on verbal stimulus.falls back asleep - Objective MAR Reviewed: Yes Vital Signs & Weight: Vital Signs (12 hours) Temp Pulse Resp BP BP Pulse Ox 12/03/18 08:56 101 H 12/03/18 08:15 101 H 12/03/18 07:14 97.6 F 101 H 26 H 132/80 100 12/03/18 05:00 106 H 22 H 147/84 H 94 L 12/03/18 04:41 79 163/101 H 12/03/18 04:15 98.8 F 87 22 H 163/101 H 96 12/03/18 00:00 98.0 F 79 20 121/71 97 Weight Admit Weight 102 lb 8.239 oz Weight 133 lb 3.2 oz Most Recent Monitor Data Heart Rate from ECG 77 NIBP 160/77 NIBP BP-Mean 104 Respiration from ECG 22 SpO2 94 I&O: 12/02/18 12/03/18 12/04/18 06:59 06:59 06:59 Intake Total 4702 3060 267 Output Total 3200 3900 Balance 1502 -840 267 Result Diagrams: 12/03/18 04:21 12/02/18 04:44 Additional Labs: Accuchecks 12/03/18 12/02/18 09:27 20:24 POC Glucose 128 H 90 Microbiology 11/25/18 17:03 Venous blood - Left Foot Blood Culture - Final NO GROWTH IN 5 DAYS 11/25/18 16:54 Venous blood - Right Hand Blood Culture - Final NO GROWTH IN 5 DAYS 11/24/18 Unknown Urine contreras catheter Urine Culture - Final NO GROWTH AT 48 HOURS 11/19/18 19:57 Venous blood - Right Hand Blood Culture - Final NO GROWTH IN 5 DAYS 11/19/18 19:56 Venous blood - Right Hand Blood Culture - Final NO GROWTH IN 5 DAYS 11/19/18 18:55 Sputum Respiratory Culture - Final Phys Exam - Physical Examination Constitutional: NAD somnolent .sluggish HEENT: PERRLA, moist MMs, sclera anicteric, oral pharynx no lesions R Scalp wilfrid Neck: no nodes, no JVD, supple, full ROM Respiratory: no wheezing, no rales, no rhonchi, clear to auscultation bilateral Cardiovascular: RRR, no significant murmur Gastrointestinal: soft, non-tender, no distention, positive bowel sounds Musculoskeletal: no edema, pulses present left hemiparesis. Psychiatric: normal affect Dx/Plan (1) SAH (subarachnoid hemorrhage) Code(s): I60.9 - NONTRAUMATIC SUBARACHNOID HEMORRHAGE, UNSPECIFIED Status: Acute (2) Cerebral aneurysm Status: Acute Comment: s/p clipping R MCA aneursym,craniectomy and hematoma evacuation 11/13/18 (3) Uncontrolled hypertension Code(s): I10 - ESSENTIAL (PRIMARY) HYPERTENSION Status: Acute (4) Unresponsiveness Status: Acute - Plan plan discussed w/ family, DVT proph w/SCDs BP controlled. started on amlodipine.titrate, BB if BP tolerates -: Repeat CT shows Non axcute Left MCA infarct. -: mass effect and hematoma better.manage per NS -: cont TF.monitor lytes. -: IM team will follow * . to get PCP for meds but he's reluctant as they "travel" all over in [place] do not have a home Review of Systems - Review of Systems Other: can not be obtained due to encephalopathy from ICH - Medications/Allergies Allergies/Adverse Reactions: Allergies Allergy/AdvReac Type Severity Reaction Status Date / Time No Known Allergies Allergy Unverified 11/13/18 18:55 Medications: Current Medications Acetaminophen (Tylenol Elixir) 650 mg PO Q4H PRN PRN Reason: Headache/Fever/Mild Pain (1-3) Last Admin: 11/21/18 21:23 Dose: 650 mg Al Hydroxide/Mg Hydroxide (Maalox) 30 ml PO Q6H PRN PRN Reason: Indigestion Amlodipine Besylate (Norvasc) 5 mg PO DAILY [facility] Last Admin: 12/03/18 08:56 Dose: 5 mg Diphenhydramine HCl (Benadryl) 50 mg PO Q6H PRN PRN Reason: Itching or Insomnia Diphenhydramine HCl (Benadryl) 50 mg IVP Q6H PRN PRN Reason: Itching or Insomnia Docusate Sodium (Colace) 100 mg PO BIDPRN PRN PRN Reason: Constipation Famotidine (Pepcid) 20 mg PO Q12HR [facility] Last Admin: 12/03/18 08:56 Dose: 20 mg Hydralazine HCl (Apresoline) 5 mg SLOW IVP Q15M PRN PRN Reason: TO KEEP SBP </=160 Last Admin: 12/03/18 04:41 Dose: 5 mg Nicardipine HCl 25 mg/ Sodium (Chloride) 260 mls @ 2.626 mls/hr IVPB INF [facility] Last Admin: 11/14/18 07:17 Dose: 260 mls Potassium Chloride 40 meq/ (Sodium Chloride) 270 mls @ 135 mls/hr IVPB ASDIR PRN PRN Reason: FOR SERUM K+ 2.5 - 3.5 Potassium Chloride 40 meq/ (Device) 100 mls @ 50 mls/hr IVPB ASDIR PRN PRN Reason: FOR SERUM K+ 2.5 - 3.5 Magnesium Sulfate 1 gm/ Sodium (Chloride) 102 mls @ 102 mls/hr IV PRN PRN PRN Reason: MAG LEVEL 1.4 - 2.0 Magnesium Sulfate 2 gm/ Device 100 mls @ 100 mls/hr IVPB ASDIR PRN PRN Reason: MAGNESIUM < 1.4 Potassium Phosphate 9 mmol/ (Sodium Chloride) 103 mls @ 25.75 mls/hr IVPB ASDIR PRN PRN Reason: Phosphate 1.0-1.8 Potassium Phosphate 12 mmol/ (Sodium Chloride) 254 mls @ 63.5 mls/hr IV ASDIR PRN PRN Reason: Serum phosphate 0.5-0.9 Potassium Phosphate 15 mmol/ (Sodium Chloride) 255 mls @ 63.75 mls/hr IV ASDIR PRN PRN Reason: Serum Phos < 0.5 Sodium Chloride 256 meq/ (Sterile Water) 1,000 mls @ 100 mls/hr IV INF [facility] Last Admin: 12/02/18 22:15 Dose: 1,000 mls Labetalol HCl (Normodyne) 10 mg SLOW IVP Q15M PRN PRN Reason: TO KEEP SBP </=160 Last Admin: 12/02/18 03:30 Dose: 10 mg Levetiracetam (Keppra) 500 mg PO BID [facility] Last Admin: 12/03/18 08:56 Dose: 500 mg Magnesium Hydroxide (Milk Of Magnesium) 30 ml PO BIDPRN PRN PRN Reason: Constipation Last Admin: 11/20/18 18:40 Dose: 30 ml Magnesium Oxide (Magnesium Oxide) 400 mg PO BIDPRN PRN PRN Reason: FOR SERUM MAG 1.4 - 2.0 Magnesium Oxide (Magnesium Oxide) 800 mg PO PRN PRN PRN Reason: FOR SERUM MAG < 1.4 Miscellaneous Medication (Phos-Nak) 1 pkt PO TIDPRN PRN PRN Reason: FOR PHOS LEVEL 1.0 - 1.8 Miscellaneous Medication (Phos-Nak) 2 pkt PO TIDPRN PRN PRN Reason: FOR PHOS LEVEL 0.5 - 1.0 Nifedipine (Procardia Xl) 30 mg PO DAILY [facility] Last Admin: 12/03/18 08:15 Dose: Not Given Ccu Electrolyte (Replacement Protocol) 0 each FS PRN PRN PRN Reason: FOR ELECTROLYTE REPLACEMENT Ondansetron HCl (Zofran) 4 mg IVP Q6H PRN PRN Reason: Nausea/Vomiting Potassium Chloride (K-Dur) 40 meq PO ASDIR PRN PRN Reason: FOR SERUM K+ 2.5 - 3.5 Potassium Chloride (Klor-Con) 40 meq PER TUBE ASDIR PRN PRN Reason: FOR SERUM K+ 2.5-3.5 Last Admin: 11/28/18 12:37 Dose: 40 meq Promethazine HCl (Phenergan) 25 mg PO Q4H PRN PRN Reason: Nausea/Vomiting Promethazine HCl (Phenergan) 25 mg IM Q4H PRN PRN Reason: Nausea/Vomiting Scopolamine (Transderm Scop) 1.5 mg TD Q3D [facility] Last Admin: 12/01/18 09:07 Dose: 1.5 mg Sodium Chloride (Flush - Normal Saline) 10 ml IVF Q12HR [facility] Last Admin: 12/03/18 08:56 Dose: 10 ml Sodium Chloride (Flush - Normal Saline) 10 ml IVF PRN PRN PRN Reason: Saline Flush Last Admin: 11/26/18 06:37 Dose: 10 ml
[2018-12-04 00:02] VITALS: TEMP 97.8
[2018-12-04] MEDS: Labetalol HCl 100 MG/20 ML VIAL SLOW IVP PRN (02:08)
[2018-12-04] MEDS: Acetaminophen 650 MG/20.3 ML UDCUP PO PRN (04:24)
[2018-12-04 04:59] LABS: #Basophils 0.1 thou/uL (0.0-0.2); #Eosinphils 0.1 thou/uL (0.0-0.7); #Lymphocytes 1.5 thou/uL (1.20-3.40); #Monocytes 0.9 thou/uL (0.11-0.59); #Neutrophils 7.3 thou/uL (1.40-6.50); %Basophils 0.5 % (0.0-1.0); %Eosinophils 1.5 % (0.0-10.0); %Lymphocytes 15.1 % (21.0-51.0); %Monocytes 8.7 % (0.0-10.0); %Neutrophils 74.3 % (42.0-75.0); Hemoglobin 10.9 g/dL (12.0-16.0); Mean Corpuscular HGB CONC 31.3 g/dL (32.0-36.0); Mean Corpuscular Hemoglobin 30.2 pg (27.0-31.0); Mean Corpuscular Volume 96.5 fL (78.0-98.0); Mean Platelet Volume 6.5 fL (7.4-10.4); Platelet Count 622 thou/uL (130-400); RBC Distribution Width 14.4 % (11.5-14.5); White Blood Cell (WBC) Count 9.9 thou/uL (4.8-10.8)
[2018-12-04 05:18] LABS: Anion Gap 13 mmol/L (10-20); BUN (Urea Nitrogen) 20 mg/dL (9.8-20.1); Calc. Creatinine Clearance 82 mL/min (70-130); Calcium 8.5 mg/dL (7.8-10.44); Carbon Dioxide 23 mmol/L (23-31); Chloride 108 mmol/L (98-107); Estimated GFR-MDRD Greater than 90; Glucose 100 mg/dL (80-115); Magnesium 2.1 mg/dL (1.6-2.6); Potassium 3.7 mmol/L (3.5-5.1); Sodium 140 mmol/L (136-145)
[2018-12-04 08:00] VITALS: BMI 24.0
--- NOTE | 2018-12-04 09:31 | ULT ---
BILATERAL LOWER EXTREMITY VENOUS DOPPLER ULTRASOUND: Date: 12/04/18 HISTORY: Immobility. TECHNIQUE: Moreno scale ultrasound with color flow and spectral Doppler imaging of the deep venous systems of the lower extremities was performed bilaterally. Exam is limited due to patient's positioning and combative behavior. FINDINGS: There is good flow, compression, and augmentation noted in the common femoral, femoral, deep femoral, popliteal, posterior tibial, and greater saphenous veins on either side. IMPRESSION: No evidence of deep venous thrombosis in either lower extremity. POS: OFF
[2018-12-04] MEDS: NIFEdipine XL 30 MG TAB PO SCH (09:34)
[2018-12-04] MEDS: Amlodipine 5 MG TAB PO SCH (09:34)
[2018-12-04] MEDS: Famotidine 20 MG TAB PO SCH (09:34)
[2018-12-04] MEDS: levETIRAcetam 500 MG TAB PO SCH (09:34)
[2018-12-04] MEDS: Scopolamine 1.5 mg/72 hour Patch TD SCH (09:35)
--- NOTE | 2018-12-04 09:35 | PRG ---
DATE OF SERVICE: NEUROSURGERY PROGRESS NOTE Ms. Camargo is a 21 day out from aneurysmal subarachnoid hemorrhage from a right MCA aneurysm rupture. The rupture also resulted in a large intraparenchymal clot. She has been making a slow but steady neurological recovery. I saw her this morning in the intermediate care unit. Vital signs overnight did not reveal a fever. Blood pressures have been in the 100s to 150s. On examination, Ms. Camargo opens her eyes as I entered the room. The left eye opens well, right eye still a bit swollen, but she can get the lids apart. She is very purposeful with the right hand and follows commands on the right side. She is hemiparetic on the left. Incision is well-approximated. Half of the wilfrid were removed yesterday and the skin is still holding quite nicely and is no longer tense. White blood cell count is 9.9. Her platelets peaked two days ago and are going back down. Sodium is 140. I plan an ultrasound today to make sure there is no DVT. Subcu heparin could be initiated. We will take her off the amlodipine. Transfer to a long-term acute care facility or jail facility. It is in the works and orders will be filled out and signed today. (Our colleagues in medical record documentation along with the coding specialists have asked the comment on pneumonia in Ms. Camargo. The appropriate team for such a comment would be critical care medicine providers who are actually pulmonologists by training. Inpatient hospitalist team could also comment on that. She was placed on antibiotics and had some thick discharge from the tracheostomy site for some time and her fever defervesced slowly thereafter. Of course, people with subarachnoid hemorrhage are known to have neurogenic pulmonary edema that could have complicated the x-ray interpretation. I will defer to the experts on pulmonary physiology to respond to the query). Job ID: [id number] MTDD
--- NOTE | 2018-12-04 09:41 | PRG ---
DATE OF SERVICE: 12/04/2018 SUBJECTIVE: A 68-year-old female, this morning, appears to be in no distress. No complaints. OBJECTIVE: VITAL SIGNS: Blood pressure 133/78, pulse 80, respiratory rate 18, and saturations 100%. CHEST: Decreased breath sounds without any wheezing. CARDIAC: Normal S1 and S2. No gallops. ABDOMEN: No masses. LABORATORY DATA: Sodium is 140, chloride 108. White count 9000. Venogram ordered yesterday. IMPRESSION: 1. Intracerebral hemorrhage, aneurysm, status post clipping. 2. Bilateral pleural effusion secondary to hypertonic saline. PLAN: Eventually placement, supportive care. We will follow while in the MICU. Job ID: [id number]
[2018-12-04 12:11] VITALS: BP 120/72
--- NOTE | 2018-12-04 14:24 | PDOC.PN ---
- Subjective Encounter Start Date: 12/04/18 Encounter Start Time: 14:23 Subjective: no ON events. being DCed to [facility]ACH by primary team -: care discussed w at bedside & emphasized importance of -: medication compliance & PCP set up. he is more than willing to do that - Objective MAR Reviewed: Yes Vital Signs & Weight: Vital Signs (12 hours) Pulse Pulse Pulse BP BP BP BP 12/04/18 11:32 92 89 120/72 123/69 12/04/18 09:34 78 137/81 12/04/18 02:39 12/04/18 02:32 78 150/94 H Pulse Ox Pulse Ox 12/04/18 11:32 99 12/04/18 09:34 12/04/18 02:39 100 12/04/18 02:32 Weight Admit Weight 102 lb 8.239 oz Weight 131 lb 2 oz Most Recent Monitor Data Heart Rate from ECG 94 NIBP 136/83 NIBP BP-Mean 100 Respiration from ECG 22 SpO2 98 I&O: 12/03/18 12/04/18 12/05/18 06:59 06:59 06:59 Intake Total 3060 2131 514 Output Total 3900 2800 Balance -840 -669 514 Result Diagrams: 12/04/18 04:21 12/04/18 04:21 Additional Labs: Accuchecks 12/04/18 12/03/18 10:48 21:29 POC Glucose 162 H 123 H Microbiology 11/25/18 17:03 Venous blood - Left Foot Blood Culture - Final NO GROWTH IN 5 DAYS 11/25/18 16:54 Venous blood - Right Hand Blood Culture - Final NO GROWTH IN 5 DAYS 11/24/18 Unknown Urine contreras catheter Urine Culture - Final NO GROWTH AT 48 HOURS 11/19/18 19:57 Venous blood - Right Hand Blood Culture - Final NO GROWTH IN 5 DAYS 11/19/18 19:56 Venous blood - Right Hand Blood Culture - Final NO GROWTH IN 5 DAYS 11/19/18 18:55 Sputum Respiratory Culture - Final Phys Exam - Physical Examination Constitutional: NAD sitting up in chair .somnolent.can not be woken up by gentle berbal stimul HEENT: PERRLA, moist MMs, sclera anicteric R scalp sutures .R lid swollen and shut Neck: no nodes, no JVD Respiratory: no wheezing, no rales, no rhonchi, clear to auscultation bilateral Cardiovascular: RRR, no significant murmur Gastrointestinal: soft, non-tender, no distention, positive bowel sounds Musculoskeletal: no edema, pulses present left hemiparesis Skin: no rash Dx/Plan (1) SAH (subarachnoid hemorrhage) Code(s): I60.9 - NONTRAUMATIC SUBARACHNOID HEMORRHAGE, UNSPECIFIED Status: Acute (2) Cerebral aneurysm Status: Acute Comment: s/p clipping R MCA aneursym,craniectomy and hematoma evacuation 11/13/18 (3) Uncontrolled hypertension Code(s): I10 - ESSENTIAL (PRIMARY) HYPERTENSION Status: Acute (4) Unresponsiveness Status: Acute Comment: Encephalopathy from ICH and SDH - Plan plan discussed w/ family, DVT proph w/SCDs cont amlodipine and add low dose Lisinopril.BP better -: OK to DC from IM stand point. -: DC med rec done. -: will sign off * . Review of Systems - Review of Systems Other: can not be obtained due to encephalopathy from Ac ICH & SAH - Medications/Allergies Allergies/Adverse Reactions: Allergies Allergy/AdvReac Type Severity Reaction Status Date / Time No Known Allergies Allergy Unverified 11/13/18 18:55 Medications: Current Medications Acetaminophen (Tylenol Elixir) 650 mg PO Q4H PRN PRN Reason: Headache/Fever/Mild Pain (1-3) Last Admin: 12/04/18 04:24 Dose: 650 mg Al Hydroxide/Mg Hydroxide (Maalox) 30 ml PO Q6H PRN PRN Reason: Indigestion Amlodipine Besylate (Norvasc) 5 mg PO DAILY [facility] Last Admin: 12/04/18 09:34 Dose: 5 mg Diphenhydramine HCl (Benadryl) 50 mg PO Q6H PRN PRN Reason: Itching or Insomnia Diphenhydramine HCl (Benadryl) 50 mg IVP Q6H PRN PRN Reason: Itching or Insomnia Docusate Sodium (Colace) 100 mg PO BIDPRN PRN PRN Reason: Constipation Famotidine (Pepcid) 20 mg PO Q12HR [facility] Last Admin: 12/04/18 09:34 Dose: 20 mg Hydralazine HCl (Apresoline) 5 mg SLOW IVP Q15M PRN PRN Reason: TO KEEP SBP </=160 Last Admin: 12/03/18 04:41 Dose: 5 mg Nicardipine HCl 25 mg/ Sodium (Chloride) 260 mls @ 2.626 mls/hr IVPB INF DIDI Last Admin: 11/14/18 07:17 Dose: 260 mls Potassium Chloride 40 meq/ (Sodium Chloride) 270 mls @ 135 mls/hr IVPB ASDIR PRN PRN Reason: FOR SERUM K+ 2.5 - 3.5 Potassium Chloride 40 meq/ (Device) 100 mls @ 50 mls/hr IVPB ASDIR PRN PRN Reason: FOR SERUM K+ 2.5 - 3.5 Magnesium Sulfate 1 gm/ Sodium (Chloride) 102 mls @ 102 mls/hr IV PRN PRN PRN Reason: MAG LEVEL 1.4 - 2.0 Magnesium Sulfate 2 gm/ Device 100 mls @ 100 mls/hr IVPB ASDIR PRN PRN Reason: MAGNESIUM < 1.4 Potassium Phosphate 9 mmol/ (Sodium Chloride) 103 mls @ 25.75 mls/hr IVPB ASDIR PRN PRN Reason: Phosphate 1.0-1.8 Potassium Phosphate 12 mmol/ (Sodium Chloride) 254 mls @ 63.5 mls/hr IV ASDIR PRN PRN Reason: Serum phosphate 0.5-0.9 Potassium Phosphate 15 mmol/ (Sodium Chloride) 255 mls @ 63.75 mls/hr IV ASDIR PRN PRN Reason: Serum Phos < 0.5 Sodium Chloride 256 meq/ (Sterile Water) 1,000 mls @ 100 mls/hr IV INF DIDI Last Admin: 12/02/18 22:15 Dose: 1,000 mls Labetalol HCl (Normodyne) 10 mg SLOW IVP Q15M PRN PRN Reason: TO KEEP SBP </=160 Last Admin: 12/04/18 02:08 Dose: 10 mg Levetiracetam (Keppra) 500 mg PO BID [facility] Last Admin: 12/04/18 09:34 Dose: 500 mg Lisinopril (Zestril) 2.5 mg PO BID DIDI Magnesium Hydroxide (Milk Of Magnesium) 30 ml PO BIDPRN PRN PRN Reason: Constipation Last Admin: 11/20/18 18:40 Dose: 30 ml Magnesium Oxide (Magnesium Oxide) 400 mg PO BIDPRN PRN PRN Reason: FOR SERUM MAG 1.4 - 2.0 Magnesium Oxide (Magnesium Oxide) 800 mg PO PRN PRN PRN Reason: FOR SERUM MAG < 1.4 Miscellaneous Medication (Phos-Nak) 1 pkt PO TIDPRN PRN PRN Reason: FOR PHOS LEVEL 1.0 - 1.8 Miscellaneous Medication (Phos-Nak) 2 pkt PO TIDPRN PRN PRN Reason: FOR PHOS LEVEL 0.5 - 1.0 Nifedipine (Procardia Xl) 30 mg PO DAILY [facility] Last Admin: 12/04/18 09:34 Dose: 30 mg Ccu Electrolyte (Replacement Protocol) 0 each FS PRN PRN PRN Reason: FOR ELECTROLYTE REPLACEMENT Ondansetron HCl (Zofran) 4 mg IVP Q6H PRN PRN Reason: Nausea/Vomiting Potassium Chloride (K-Dur) 40 meq PO ASDIR PRN PRN Reason: FOR SERUM K+ 2.5 - 3.5 Potassium Chloride (Klor-Con) 40 meq PER TUBE ASDIR PRN PRN Reason: FOR SERUM K+ 2.5-3.5 Last Admin: 11/28/18 12:37 Dose: 40 meq Promethazine HCl (Phenergan) 25 mg PO Q4H PRN PRN Reason: Nausea/Vomiting Promethazine HCl (Phenergan) 25 mg IM Q4H PRN PRN Reason: Nausea/Vomiting Scopolamine (Transderm Scop) 1.5 mg TD Q3D [facility] Last Admin: 12/04/18 09:35 Dose: 1.5 mg Sodium Chloride (Flush - Normal Saline) 10 ml IVF Q12HR [facility] Last Admin: 12/04/18 09:35 Dose: 10 ml Sodium Chloride (Flush - Normal Saline) 10 ml IVF PRN PRN PRN Reason: Saline Flush Last Admin: 12/04/18 02:09 Dose: 10 ml
[2018-12-04] MEDS ORDERED: Lisinopril 5 MG TAB PO SCH (21:00)
== END 2018-12-04 17:00 | DRG 3 ==
LOC: ERS 18:02 → EEVIPCON 21:02 → CCU 21:02 → IMCU/EMU 11-22 14:55
PROVIDERS: ADMIT Neurological Surgery; ATTEND Neurological Surgery
PROC: 03LG0CZ Occlusion of Intracranial Artery with Extraluminal Device, Open Approach (ICD-10-PCS; principal; 2018-11-13)
PROC: 5A1955Z Respiratory Ventilation, Greater than 96 Consecutive Hours (ICD-10-PCS; 2018-11-13)
PROC: 00C00ZZ Extirpation of Matter from Brain, Open Approach (ICD-10-PCS; 2018-11-13)
PROC: 00N00ZZ Release Brain, Open Approach (ICD-10-PCS; 2018-11-13)
PROC: 0B113F4 Bypass Trachea to Cutaneous with Tracheostomy Device, Percutaneous Approach (ICD-10-PCS; 2018-11-17)
PROC: 0DH63UZ Insertion of Feeding Device into Stomach, Percutaneous Approach (ICD-10-PCS; 2018-11-17)
DX: I60.11 Nontraumatic subarachnoid hemorrhage from right middle cerebral artery (principal); J69.0 Pneumonitis due to inhalation of food and vomit; J96.00 Acute respiratory failure, unspecified whether with hypoxia or hypercapnia; J90 Pleural effusion, not elsewhere classified; G81.94 Hemiplegia, unspecified affecting left nondominant side; E87.0 Hyperosmolality and hypernatremia; G93.49 Other encephalopathy; I61.8 Other nontraumatic intracerebral hemorrhage; I10 Essential (primary) hypertension; R40.2342 Coma scale, best motor response, flexion withdrawal, at arrival to emergency department; R40.2132 Coma scale, eyes open, to sound, at arrival to emergency department; R40.2222 Coma scale, best verbal response, incomprehensible words, at arrival to emergency department
CPT/HCPCS: 31500; 36415; 36416; 51702; 70450; 70496; 70498; 71045; 80048; 80053; 81001; 82247; 82805; 82977; 83690; 83735; 84450; 84460; 84484; 85025; 85610; 85730; 86850; 86900; 86901; 87040; 87070; 87086; 87205; 93005; 93970; 94002; 94003; 94640; 96365; 96366; 96368; 96374; 96375; A4216; A4217; J0153; J0360; J0690; J0696; J1100; J1953; J1956; J2001; J2250; J2270; J2370; J2440; J2704; J3010; J3490; J7050; J7799; P9045; Q9966; S0028